=== PATIENT | female | born 1955 | race Caucasian/White ===

== ENCOUNTER → 2016-12-19 | Outpatient (CLI) | payer MEDICARE, MEDICAID ==
[~2016-12-19] MED LIST: ADVAIR 500/501 EA INH; ALBUTEROL0.09 MG/A2 IH; ALBUTEROL0.09 MG/A2 INH; AMOXIL500 MG PO; ASPIRIN81 M1 PO; ATARAX25 MG PO; AUGMENTIN 875 M1 TAB PO; AUGMENTIN 875875 MG PO; CIPRO250 MG PO; CLARITIN-D 10 M1 T21 PO; CLARITIN10 MG PO; CLINDAMYCIN HC300 MG PO; COREG PO; COREG12.5 M1 PO; COREG12.5 MG PO; COREG6.25 MG PO; COUMADIN1 MG PO; COUMADIN5 M2 PO; COZAAR25 MG PO; Coumadin7.5 MG PO; DELTASONE10 MG; DIGOXIN; DIGOXIN0.125 MG PO; DILTIAZEM60 MG PO; DOXYCYCLINE100 MG PO; DUEXIS 800-26.1 EACH PO; ELIQUIS5 M1 PO; FLEXERIL5 MG PO; FLONASE0.05 MG/AC NS; HYDROXYZINE HCL25 M1 PO; JANTOVEN1 MG PO; K-TAB20 MEQ PO; KEPPRA250 MG PO; LANOXIN0.25 MG PO; LASIX20 MG PO; LASIX40 MG PO; LEVAQUIN500 M2 PO; LIPITOR80 MG PO; LISINOPRIL5 MG PO; LOMOTIL 0.025 M1 TAB PO; LOTRISONE 0.05%1 CRE TP; LOVENOX100 MG/1 M PO; MENTHOL 5% T; METFORMIN500 MG PO; METOPROLOL25 MG PO; MUCINEX600 MG PO; NASAL SPRAY; OXYCODONE HYDROC5 MG PO; OXYCODONE5 M1 PO; PREDNISONE10 MG PO; PREDNISONE20 M1 PO; PREDNISONE20 MG PO; PRILOSEC20 MG PO; PROAIR HFA0.09 MG/AC IH; PROTONIX40 MG PO; PROVENTIL0.09 MG/AC IH; PROVENTIL0.09 MG/AC INH; QVAR40 MCG INH; ROBAXIN500 MG PO; SYMBICORT1 AE1 INH; TOPIRAMATE200 M2 PO; TRAMADOL HCL50 MG PO; VENTOLIN H0.09 MG/AC INH; VICODIN 5/500 505 MG PO; VISINE 30 ML15 ML OPH; VISTARIL25 MG PO; VOLTAREN50 M1 PO; WARFARIN SOD5 MG PO; ZITHROMAX Z PA250 MG PO; ZITHROMAX250 MG PO; ZITHROMAX500 MG PO; ZYRTEC10 MG PO; Zofran4 MG PO
[2016-12-19 16:18] LABS: ALBUMIN 3.5 gm/dl (3.1-4.5); ALKALINE PHOSPHATASE 166 U/L (45-117); BILIRUBIN, TOTAL 0.8 mg/dl (0.2-1.0); BUN 17 mg/dl (7-24); CARBON DIOXIDE 31 mmol/L (21-32); CHLORIDE 100 mmol/L (98-107); CHOLESTEROL 133 mg/dL (<200); EST GLOM FILT AFRICAN AMERICAN > 60 ml/min; GLUCOSE 200 mg/dL (65-99); HDL CHOLESTEROL 49 mg/dl (40-60); LDL CHOLESTEROL 43 mg/dL (9-159); POTASSIUM 4.3 mmol/L (3.5-5.1); SGOT/AST 134 IU/L (3-35); SGPT/ALT 86 U/L (12-78); SODIUM 141 mmol/L (136-145); TRIGLYCERIDES 207 mg/dl (<150); VLDL CHOLESTEROL 41 mg/dL (6-40)
[2016-12-19 16:36] LABS: BASO # 0.1 10*3/uL (0.0-0.1); BASO % 1.5 % (0.0-1.0); EOS # 0.1 10*3/uL (0.0-0.4); EOS % 1.5 % (1.0-4.0); HEMATOCRIT 42.1 % (37.0-47.0); HEMOGLOBIN 14.2 g/dl (12.0-16.0); LYMPH # 1.6 10*3/uL (1.3-4.4); LYMPH % 34.4 % (27.0-41.0); MEAN CELL VOLUME 99.3 fl (81.0-99.0); MEAN CORPUSCULAR HGB 33.5 pg (27.0-31.0); MEAN CORPUSCULAR HGB CONC 33.7 g/dl (33.0-37.0); MEAN PLATELET VOLUME 11.1 fl (9.6-12.3); MONO # 0.4 10*3/uL (0.1-1.0); MONO % 9.2 % (3.0-9.0); NEUT # 2.4 10*3/uL (2.3-7.9); NEUT % 53.2 % (47.0-73.0); PLATELET COUNT AUTOMATED 134 10*3/uL (130-400); RED BLOOD COUNT 4.24 10*6/uL (4.10-5.10); RED CELL DISTRI WIDTH 12.9 % (0-14.5); WHITE BLOOD COUNT 4.6 10*3/uL (4.8-10.8)
[2016-12-19 16:57] LABS: HEMOGLOBIN A1c 9.5 % (4.8-5.6)
== END | disposition home or self-care (01) ==
LOC: LAB 15:12
PROVIDERS: General Practice
DX: I10 Essential (primary) hypertension (principal); E11.9 Type 2 diabetes mellitus without complications; Z79.899 Other long term (current) drug therapy

== ENCOUNTER 2017-01-31 12:38 | Emergency (ER) | payer MEDICARE, MEDICAID ==
[~2017-01-31] VITALS: Ht 157.4 cm; Wt 77.6 kg
[2017-01-31 12:45] VITALS: BP 154/87
[2017-01-31] MEDS ORDERED: OMEPRAZOLE40 MG PO (12:46)
[2017-01-31] MEDS ORDERED: TAB-A-VITE1 TA1 PO (12:47)
[2017-01-31] MEDS ORDERED: HYDROXYZINE HCL25 MG PO (12:49)
[2017-01-31 12:59] LABS: BILIRUBIN NEGATIVE (NEGATIVE); BLOOD NEGATIVE (NEGATIVE); CLARITY CLEAR (CLEAR); COLOR YELLOW (YELLOW); GLUCOSE 3+ (NEGATIVE); KETONE NEGATIVE (NEGATIVE); LEUKO ESTERASE NEGATIVE (NEGATIVE); NITRITE NEGATIVE (NEGATIVE); PROTEIN NEGATIVE (NEGATIVE); UROBILINOGEN 0.2 E.U./dl (0.2-1.0)
[2017-01-31 13:38] LABS: URINE REFLEX COMMENT NO (NO)
[2017-01-31 13:55] LABS: BASO # 0.1 10*3/uL (0.0-0.1); BASO % 1.1 % (0.0-1.0); EOS # 0.1 10*3/uL (0.0-0.4); EOS % 1.5 % (1.0-4.0); HEMOGLOBIN 13.7 g/dl (12.0-16.0); LYMPH # 1.4 10*3/uL (1.3-4.4); LYMPH % 30.4 % (27.0-41.0); MEAN CELL VOLUME 97.6 fl (81.0-99.0); MEAN CORPUSCULAR HGB 33.4 pg (27.0-31.0); MEAN CORPUSCULAR HGB CONC 34.3 g/dl (33.0-37.0); MEAN PLATELET VOLUME 11.2 fl (9.6-12.3); MONO # 0.3 10*3/uL (0.1-1.0); MONO % 6.3 % (3.0-9.0); NEUT # 2.8 10*3/uL (2.3-7.9); NEUT % 60.3 % (47.0-73.0); PLATELET COUNT AUTOMATED 87 10*3/uL (130-400); RED CELL DISTRI WIDTH 12.7 % (0-14.5); WHITE BLOOD COUNT 4.6 10*3/uL (4.8-10.8)
[2017-01-31 14:11] LABS: ALBUMIN 3.3 gm/dl (3.1-4.5); ALKALINE PHOSPHATASE 167 U/L (45-117); BILIRUBIN, TOTAL 1.1 mg/dl (0.2-1.0); BUN 9 mg/dl (7-24); C-REACTIVE PROTEIN 1.06 MG/DL (0-0.3); CARBON DIOXIDE 29 mmol/L (21-32); CHLORIDE 104 mmol/L (98-107); EST GLOM FILT AFRICAN AMERICAN > 60 ml/min; GLUCOSE 367 mg/dL (65-99); MAGNESIUM 1.8 mg/dL (1.5-2.1); POTASSIUM 4.1 mmol/L (3.5-5.1); SGOT/AST 57 IU/L (3-35); SGPT/ALT 58 U/L (12-78); SODIUM 138 mmol/L (136-145); TOTAL PROTEIN 6.6 gm/dL (6.4-8.2)
[2017-01-31] MEDS ORDERED: BACTRIM DS 8001 TAB PO (14:37)
== END 2017-01-31 12:56 | disposition home or self-care (01) ==
LOC: ED 12:38
PROVIDERS: Emergency Medicine
DX: R30.0 Dysuria (principal); R30.9 Painful micturition, unspecified; E11.8 Type 2 diabetes mellitus with unspecified complications; I48.91 Unspecified atrial fibrillation; J44.9 Chronic obstructive pulmonary disease, unspecified; E11.9 Type 2 diabetes mellitus without complications; K21.9 Gastro-esophageal reflux disease without esophagitis; I10 Essential (primary) hypertension; I50.22 Chronic systolic (congestive) heart failure; I25.10 Atherosclerotic heart disease of native coronary artery without angina pectoris; Z79.899 Other long term (current) drug therapy; Z79.82 Long term (current) use of aspirin

== ENCOUNTER → 2017-04-06 | Outpatient (CLI) | payer MEDICARE, MEDICAID ==
[~2017-04-06] MED LIST changes: +BACTRIM DS 8001 TAB PO; +HYDROXYZINE HCL25 MG PO; +OMEPRAZOLE40 MG PO; +TAB-A-VITE1 TA1 PO
[2017-04-06 12:01] LABS: BASO % 0.9 % (0.0-1.0); EOS # 0.1 10*3/uL (0.0-0.4); EOS % 1.7 % (1.0-4.0); HEMATOCRIT 43.6 % (37.0-47.0); HEMOGLOBIN 15.1 g/dl (12.0-16.0); LYMPH # 1.3 10*3/uL (1.3-4.4); LYMPH % 27.5 % (27.0-41.0); MEAN CORPUSCULAR HGB 34.6 pg (27.0-31.0); MEAN CORPUSCULAR HGB CONC 34.6 g/dl (33.0-37.0); MEAN PLATELET VOLUME 11.6 fl (9.6-12.3); MONO # 0.3 10*3/uL (0.1-1.0); MONO % 6.7 % (3.0-9.0); NEUT # 2.9 10*3/uL (2.3-7.9); PLATELET COUNT AUTOMATED 117 10*3/uL (130-400); RED BLOOD COUNT 4.36 10*6/uL (4.10-5.10); WHITE BLOOD COUNT 4.7 10*3/uL (4.8-10.8)
[2017-04-06 12:05] LABS: HEMOGLOBIN A1c 10.4 % (4.8-5.6)
[2017-04-06 12:19] LABS: ALBUMIN 3.3 gm/dl (3.1-4.5); BILIRUBIN, TOTAL 1.1 mg/dl (0.2-1.0); POTASSIUM 4.1 mmol/L (3.5-5.1); TOTAL PROTEIN 7.3 gm/dL (6.4-8.2)
== END | disposition home or self-care (01) ==
LOC: LAB 11:21
PROVIDERS: General Practice
DX: E11.9 Type 2 diabetes mellitus without complications (principal); I10 Essential (primary) hypertension

== ENCOUNTER 2017-05-28 11:10 | Emergency (ER) | payer MEDICARE, MEDICAID ==
[~2017-05-28] VITALS: Ht 157.4 cm; Wt 73.9 kg
[2017-05-28 11:40] VITALS: BP 132/81
[2017-05-28 13:20] LABS: BASO % 0.6 % (0.0-1.0); EOS % 0.6 % (1.0-4.0); HEMATOCRIT 44.9 % (37.0-47.0); HEMOGLOBIN 15.4 g/dl (12.0-16.0); LYMPH # 0.8 10*3/uL (1.3-4.4); LYMPH % 23.6 % (27.0-41.0); MEAN CORPUSCULAR HGB 33.6 pg (27.0-31.0); MEAN CORPUSCULAR HGB CONC 34.3 g/dl (33.0-37.0); MEAN PLATELET VOLUME 10.7 fl (9.6-12.3); MONO # 0.4 10*3/uL (0.1-1.0); MONO % 12.3 % (3.0-9.0); NEUT # 2.2 10*3/uL (2.3-7.9); NEUT % 62.9 % (47.0-73.0); PLATELET COUNT AUTOMATED 104 10*3/uL (130-400); RED BLOOD COUNT 4.58 10*6/uL (4.10-5.10); RED CELL DISTRI WIDTH 13.2 % (0-14.5); WHITE BLOOD COUNT 3.5 10*3/uL (4.8-10.8)
[2017-05-28 13:34] LABS: ALBUMIN 3.1 gm/dl (3.1-4.5); ALKALINE PHOSPHATASE 143 U/L (45-117); BUN 9 mg/dl (7-24); CHLORIDE 104 mmol/L (98-107); CREATININE 0.93 mg/dL (0.55-1.02); LIPASE 107 U/L (73-393); SGOT/AST 135 IU/L (3-35); SGPT/ALT 89 U/L (12-78); SODIUM 134 mmol/L (136-145); TOTAL PROTEIN 6.8 gm/dL (6.4-8.2)
[2017-05-28 15:57] LABS: BILIRUBIN 1+ (NEGATIVE); BLOOD NEGATIVE (NEGATIVE); CLARITY CLEAR (CLEAR); COLOR YELLOW (YELLOW); GLUCOSE 3+ (NEGATIVE); KETONE TRACE (NEGATIVE); LEUKO ESTERASE NEGATIVE (NEGATIVE); NITRITE NEGATIVE (NEGATIVE); PH 5.5 (5.0-9.0); SPECIFIC GRAVITY 1.025 (1.005-1.030)
[2017-05-28 16:05] LABS: BACTERIA TRACE; MUCOUS 1+; RBC 0-2 rbc/hpf (0-2); WBC 0-2 wbc/hpf (0-5)
[2017-05-28] MEDS ORDERED: ZOFRAN ODT4 MG SL (16:22)
== END 2017-05-28 16:48 | disposition home or self-care (01) ==
LOC: ED 11:10
PROVIDERS: Nurse Practitioner Family
DX: A08.4 Viral intestinal infection, unspecified (principal); I48.91 Unspecified atrial fibrillation; I25.10 Atherosclerotic heart disease of native coronary artery without angina pectoris; E11.9 Type 2 diabetes mellitus without complications; K21.9 Gastro-esophageal reflux disease without esophagitis; I11.0 Hypertensive heart disease with heart failure; I50.9 Heart failure, unspecified; Z95.1 Presence of aortocoronary bypass graft; Z98.890 Other specified postprocedural states; Z79.82 Long term (current) use of aspirin; Z79.899 Other long term (current) drug therapy

== ENCOUNTER 2017-07-23 10:40 | Inpatient (IN) | payer MEDICARE, MEDICAID ==
[~2017-07-23] VITALS: Ht 157.5 cm; Wt 77.2 kg
[~2017-07-23 10:40] MED LIST changes: +ZOFRAN ODT4 MG SL
[2017-07-23 10:50] VITALS: BP 97/81
[2017-07-23 11:31] LABS: BASO % 0.5 % (0.0-1.0); EOS # 0.1 10*3/uL (0.0-0.4); EOS % 1.5 % (1.0-4.0); HEMATOCRIT 41.5 % (37.0-47.0); HEMOGLOBIN 14.4 g/dl (12.0-16.0); LYMPH # 1.1 10*3/uL (1.3-4.4); LYMPH % 17.8 % (27.0-41.0); MEAN CELL VOLUME 98.1 fl (81.0-99.0); MEAN CORPUSCULAR HGB CONC 34.7 g/dl (33.0-37.0); MEAN PLATELET VOLUME 10.9 fl (9.6-12.3); MONO # 0.4 10*3/uL (0.1-1.0); MONO % 6.3 % (3.0-9.0); NEUT # 4.3 10*3/uL (2.3-7.9); NEUT % 73.7 % (47.0-73.0); PLATELET COUNT AUTOMATED 120 10*3/uL (130-400); RED BLOOD COUNT 4.23 10*6/uL (4.10-5.10); WHITE BLOOD COUNT 5.9 10*3/uL (4.8-10.8)
--- NOTE | 2017-07-23 11:39 | NUR ---
PATIENT RATES PAIN A 10/10. STATES SYMPTOMS STARTED YESTERDAY MORNING.
[2017-07-23 11:41] LABS: ACT PARTIAL THROMBO TIME 23.8 SECONDS (20.8-31.5)
[2017-07-23 11:46] LABS: ALBUMIN 3.3 gm/dl (3.1-4.5); ALKALINE PHOSPHATASE 134 U/L (45-117); BUN 10 mg/dl (7-24); CHLORIDE 106 mmol/L (98-107); CREATININE 0.75 mg/dL (0.55-1.02); LIPASE 120 U/L (73-393); POTASSIUM 4.1 mmol/L (3.5-5.1); SGOT/AST 55 IU/L (3-35); SGPT/ALT 37 U/L (12-78); SODIUM 140 mmol/L (136-145); TOTAL PROTEIN 7.2 gm/dL (6.4-8.2)
[2017-07-23 11:47] LABS: TROPONIN I < 0.015 ng/ml (<0.045)
--- NOTE | 2017-07-23 12:47 | NUR ---
THE TYLENOL HAS HELPED WITH THE PATENTS PAIN
[2017-07-23 13:12] LABS: BILIRUBIN NEGATIVE (NEGATIVE); BLOOD TRACE-INTACT (NEGATIVE); CLARITY CLOUDY (CLEAR); COLOR YELLOW (YELLOW); GLUCOSE 3+ (NEGATIVE); KETONE NEGATIVE (NEGATIVE); LEUKO ESTERASE 1+ (NEGATIVE); NITRITE NEGATIVE (NEGATIVE)
[2017-07-23 13:27] LABS: MUCOUS 1+; WBC TNTC wbc/hpf (0-5)
[2017-07-23 13:28] LABS: BACTERIA TRACE
[2017-07-23 15:42] VITALS: BP 151/86
--- NOTE | 2017-07-23 16:46 | NUR ---
REPORT GIVEN TO RONAN RN AT THIS TIME.
[2017-07-23 16:47] VITALS: BP 151/86
[2017-07-23 17:15] VITALS: BP 98/60
--- NOTE | 2017-07-23 17:15 | NUR ---
A 61, admitted to , under the services of BALTAZAR Arevalo DO with a diagnosis of UTI,SEPSIS,PNEUMONITIS. Chief complaint is SHORTNESS OF BREATH,CONGESTION, COUGH. Patient arrived via bed from ER. Monitor applied. Initial assessment completed. Vital signs taken and recorded. BALTAZAR AREVALO DO notified of admission to the unit. Orders received. See assessment for past medical history, medications and allergies. Patient and/or family oriented to unit. [facility]. Clothing/patient valuable form completed. JONATHON BOATENG R
--- NOTE | 2017-07-23 17:20 | NUR ---
PATIENT TAKEN TO 5TH FLOOR. HARSHA BRAR AT BEDSIDE WITH PATIENT AT THIS TIME.
--- NOTE | 2017-07-23 18:10 | NUR ---
MEDICATIONS VERIFIED FROM PT LIST OF HOME MEDICATIONS.
--- NOTE | 2017-07-23 19:13 | NUR ---
DR. Divya COTA MADE AWARE OF MEDS UPDATED.
[2017-07-23 20:00] VITALS: BP 136/70
--- NOTE | 2017-07-23 22:00 | NUR ---
DROWSY. RESPIRATIONS EASY. EYES MATTED, PROVIDED WITH WARM WASH CLOTH. LUNGS DIMINISHED, CLEAR. PULSE OX 98% RA. CLAIMS COUGH PROD FOR GREEN/BROWN. ABD SOFT WITH HYPERACTIVE BOWEL SOUNDS, C/O DIARRHEA. +2 BLE EDEMA - OFFERED AND EDUCATED REGARDING TEDS, DECLINED. IV FLUIDS INFUSING. CALL LIGHT WITHIN REACH
[2017-07-24] VITALS: BP 105/79
[2017-07-24 04:00] VITALS: BP 108/82
--- NOTE | 2017-07-24 06:00 | NUR ---
REQUESTED AND RECEIVED TYLENOL PER PRN ORDER FOR HEADACHE.
[2017-07-24 06:35] LABS: BASO % 0.3 % (0.0-1.0); EOS % 0.3 % (1.0-4.0); HEMATOCRIT 39.3 % (37.0-47.0); HEMOGLOBIN 13.4 g/dl (12.0-16.0); LYMPH # 0.4 10*3/uL (1.3-4.4); LYMPH % 12.2 % (27.0-41.0); MEAN CELL VOLUME 98.3 fl (81.0-99.0); MEAN CORPUSCULAR HGB 33.5 pg (27.0-31.0); MEAN CORPUSCULAR HGB CONC 34.1 g/dl (33.0-37.0); MEAN PLATELET VOLUME 11.2 fl (9.6-12.3); MONO # 0.1 10*3/uL (0.1-1.0); MONO % 1.5 % (3.0-9.0); NEUT # 2.9 10*3/uL (2.3-7.9); NEUT % 85.4 % (47.0-73.0); PLATELET COUNT AUTOMATED 109 10*3/uL (130-400); WHITE BLOOD COUNT 3.4 10*3/uL (4.8-10.8)
[2017-07-24 07:04] LABS: BUN 10 mg/dl (7-24); CHLORIDE 109 mmol/L (98-107); CHOLESTEROL 119 mg/dL (<200); CREATININE 0.78 mg/dL (0.55-1.02); HDL CHOLESTEROL 47 mg/dl (40-60); LDL CHOLESTEROL 61 mg/dL (9-159); POTASSIUM 4.3 mmol/L (3.5-5.1); SODIUM 140 mmol/L (136-145); TRIGLYCERIDES 57 mg/dl (<150); VLDL CHOLESTEROL 11 mg/dL (6-40)
[2017-07-24 07:05] LABS: INTERNATIONAL NORM RATIO 1.1 (2.0-3.5)
[2017-07-24 07:12] LABS: THYROID STIM HORMONE (HS) 0.885 uIU/ml (0.358-4.75)
[2017-07-24 08:00] VITALS: BP 114/58
--- NOTE | 2017-07-24 09:00 | NUR ---
Track Broom Operator in to talk to patient. Patient states lives at home with boyfriend. There are few steps in the home. Physician: jennifer josé Pharmacy: [facility] health services: none Patient's level of ADLs: INDEPENDENT Patient has working utilities: all working DME: nebulizer Follow-up physician's appointment after d/c: will be made by hospitalist nurse director upon discharge Does patient want to access PORTAL?: no Discharge plan discussed with patient, patient lives at home with boyfriend, she states she is independent in adls and ambulation, drives, works title department manager, patient states she will be going back home and denies any home needs. GABBY HESS
[2017-07-24 12:00] VITALS: BP 115/66
[2017-07-24 16:00] VITALS: BP 100/73
--- NOTE | 2017-07-24 18:14 | NUR ---
ADMINISTERED IV ZOFRAN PER PT REQUEST FOR NAUSEA. WILL MONITOR FOR EFFECTIVENESS.
--- NOTE | 2017-07-24 19:00 | NUR ---
PT RESTING COMFORTABLY. NO FURTHER COMPLAINTS OF NAUSEA AT THIS TIME
[2017-07-24 20:00] VITALS: BP 109/65
--- NOTE | 2017-07-24 21:00 | NUR ---
RESTING IN BED BED WATCHING TV. RESPIRATIONS EASY. LUNGS DIMINISHED, CLEAR. PULSE OX 96% RA. CLAIMS COUGH PRODUCTIVE FOR BROWN. +1 BLE EDEMA, CONTINUES TO DECLINE TEDS. IV FLUIDS INFUSING PER ORDER. CALL LIGHT WITHIN REACH. NO VOICED COMPLAINTS
[2017-07-25] VITALS: BP 105/54
--- NOTE | 2017-07-25 | NUR ---
SLEEPING. NO DISTRESS NOTED. RESPIRATIONS EASY. VSS. IV FLUIDS MAINTAINED PER ORDER.
--- NOTE | 2017-07-25 03:00 | NUR ---
CONTINUES TO SLEEP WITH NO DISTRESS NOTED. IV FLUIDS MAINTAINED. CALL LIGHT WITHIN REACH
--- NOTE | 2017-07-25 06:00 | NUR ---
SLEPT THROUGHOUT NIGHT WITH NO DISTRESS NOTED. RESPIRATIONS EASY. IV FLUIDS MAINTAINED. CALL LIGHT WITHIN REACH
[2017-07-25 06:33] LABS: BASO % 0.1 % (0.0-1.0); HEMATOCRIT 37.7 % (37.0-47.0); HEMOGLOBIN 12.8 g/dl (12.0-16.0); LYMPH # 0.6 10*3/uL (1.3-4.4); LYMPH % 8.2 % (27.0-41.0); MEAN CELL VOLUME 100.3 fl (81.0-99.0); MEAN PLATELET VOLUME 11.1 fl (9.6-12.3); MONO # 0.1 10*3/uL (0.1-1.0); MONO % 1.9 % (3.0-9.0); NEUT # 6.2 10*3/uL (2.3-7.9); NEUT % 89.1 % (47.0-73.0); PLATELET COUNT AUTOMATED 106 10*3/uL (130-400); RED BLOOD COUNT 3.76 10*6/uL (4.10-5.10); RED CELL DISTRI WIDTH 12.9 % (0-14.5); WHITE BLOOD COUNT 6.9 10*3/uL (4.8-10.8)
[2017-07-25 06:59] LABS: BUN 14 mg/dl (7-24); CHLORIDE 111 mmol/L (98-107); CREATININE 0.81 mg/dL (0.55-1.02); POTASSIUM 4.2 mmol/L (3.5-5.1); SODIUM 144 mmol/L (136-145)
[2017-07-25 08:00] VITALS: BP 126/69
--- NOTE | 2017-07-25 09:00 | NUR ---
case management visits with patient, patient denies any home needs
--- NOTE | 2017-07-25 09:02 | NUR ---
RESTING COMFORTABLY, DENIES C/O AT PRESENT TIME. EASY RESPIRATIONS WITH SKIN W/D. SEE SHIFT ASSESSMENT.
[2017-07-25 12:00] VITALS: BP 103/78
[2017-07-25] MEDS ORDERED: Vitamin D PO (15:21)
--- NOTE | 2017-07-25 16:22 | NUR ---
Discharge instructions reviewed with patient/family. Patient receptive and verbalizes understanding. Follow-up care arranged. Written instructions given to patient/family. EDER DILLON
== END 2017-07-25 16:22 | disposition home or self-care (01) | DRG 872 ==
LOC: ED 10:40 → 5E 13:48 → EDHOLD 13:48 → 5E 15:19
PROVIDERS: Emergency Medicine; Internal Medicine; Student in an Organized Health Care Education/Training Program; ADMIT Internal Medicine
DX: A41.9 Sepsis, unspecified organism (principal); D69.6 Thrombocytopenia, unspecified; D68.59 Other primary thrombophilia; I11.0 Hypertensive heart disease with heart failure; I50.22 Chronic systolic (congestive) heart failure; E11.65 Type 2 diabetes mellitus with hyperglycemia; I48.92 Unspecified atrial flutter; N39.0 Urinary tract infection, site not specified; I48.2 Chronic atrial fibrillation; J06.9 Acute upper respiratory infection, unspecified; J32.9 Chronic sinusitis, unspecified; I25.10 Atherosclerotic heart disease of native coronary artery without angina pectoris; D72.810 Lymphocytopenia; K21.9 Gastro-esophageal reflux disease without esophagitis; R74.0 Nonspecific elevation of levels of transaminase and lactic acid dehydrogenase [LDH]; E55.9 Vitamin D deficiency, unspecified; J44.9 Chronic obstructive pulmonary disease, unspecified; Z79.01 Long term (current) use of anticoagulants; Z79.82 Long term (current) use of aspirin; Z79.84 Long term (current) use of oral hypoglycemic drugs; Z79.51 Long term (current) use of inhaled steroids; Z79.899 Other long term (current) drug therapy; Z95.1 Presence of aortocoronary bypass graft; Z98.891 History of uterine scar from previous surgery; Z95.2 Presence of prosthetic heart valve; Z82.49 Family history of ischemic heart disease and other diseases of the circulatory system; Z83.3 Family history of diabetes mellitus; Z84.1 Family history of disorders of kidney and ureter

== ENCOUNTER 2017-10-02 12:57 | Inpatient (IN) | payer MEDICARE, MEDICAID ==
[~2017-10-02] VITALS: Ht 157.4 cm; Wt 77.2 kg
--- NOTE | ~2017-10-02 | ST ---
[place], [place] EXERCISE STRESS TEST REPORT [id number] UN[facility] #: [id number] ROOM: 403 DOCTOR: BRADY MURRIETA MD BIRTHDATE: [birth year] DOS: 10/04/2017 LEXISCAN STRESS EKG. REFERRING PHYSICIAN: Dr. Henri Bland. INDICATION: Central chest pain. The patient underwent standard protocol Lexiscan stress EKG. The patient's baseline EKG shows atrial fibrillation with a heart rate of [address]-T wave changes. Blood pressure is 118/68. The patient's peak heart was 118 with a blood pressure of 92/62. The patient had no chest pain. The patient ischemic change on EKG. No arrhythmias were noted aside from baseline atrial fibrillation. SUMMARY OF FINDINGS: Unremarkable Lexiscan stress EKG. Please see separate report for perfusion scan results. BRADY MURRIETA MD CM:STRESS:EXERCISE STRESS TEST REPORT [id number] BRADY MURRIETA MD
[~2017-10-02 12:57] MED LIST changes: +FLONASE ALLERG9.9 ML NAS; -LANOXIN0.25 MG PO; +LANOXIN250 MCG PO; +TAB-A-VITE1 EACH PO; -TAB-A-VITE1 TA1 PO; +Vitamin D PO
[2017-10-02 13:10] VITALS: BP 103/71
[2017-10-02 13:38] LABS: BASO % 0.9 % (0.0-1.0); EOS # 0.1 10*3/uL (0.0-0.4); EOS % 2.1 % (1.0-4.0); HEMATOCRIT 42.9 % (37.0-47.0); HEMOGLOBIN 14.9 g/dl (12.0-16.0); LYMPH # 0.9 10*3/uL (1.3-4.4); LYMPH % 26.2 % (27.0-41.0); MEAN CELL VOLUME 95.8 fl (81.0-99.0); MEAN CORPUSCULAR HGB 33.3 pg (27.0-31.0); MEAN CORPUSCULAR HGB CONC 34.7 g/dl (33.0-37.0); MEAN PLATELET VOLUME 11.2 fl (9.6-12.3); MONO # 0.4 10*3/uL (0.1-1.0); MONO % 11.8 % (3.0-9.0); NEUT % 58.7 % (47.0-73.0); PLATELET COUNT AUTOMATED 99 10*3/uL (130-400); RED BLOOD COUNT 4.48 10*6/uL (4.10-5.10); RED CELL DISTRI WIDTH 12.9 % (0-14.5); WHITE BLOOD COUNT 3.4 10*3/uL (4.8-10.8)
[2017-10-02 13:40] VITALS: BP 105/68
[2017-10-02 13:48] LABS: ACT PARTIAL THROMBO TIME 25.9 SECONDS (20.8-31.5); INTERNATIONAL NORM RATIO 1.2 (2.0-3.5)
[2017-10-02 13:55] LABS: ALBUMIN 3.1 gm/dl (3.1-4.5); ALKALINE PHOSPHATASE 140 U/L (45-117); BUN 11 mg/dl (7-24); CHLORIDE 105 mmol/L (98-107); CREATININE 0.98 mg/dL (0.55-1.02); POTASSIUM 4.1 mmol/L (3.5-5.1); SGOT/AST 63 IU/L (3-35); SGPT/ALT 37 U/L (12-78); SODIUM 137 mmol/L (136-145)
[2017-10-02 13:56] LABS: TROPONIN I < 0.015 ng/ml (<0.045)
[2017-10-02 14:24] VITALS: BP 105/57
[2017-10-02 14:52] VITALS: BP 101/56
[2017-10-02 16:00] VITALS: BP 126/61
[2017-10-02] MEDS ORDERED: DOXYCYCLINE100 M3 PO (16:07)
[2017-10-02] MEDS ORDERED: VITAMIN D-32000 UNIT PO (16:51)
[2017-10-02] MEDS ORDERED: GLIPIZIDE5 MG PO (16:52)
[2017-10-02 20:00] VITALS: BP 114/53
[2017-10-02 20:17] LABS: TROPONIN I < 0.015 ng/ml (<0.045)
[2017-10-02 20:26] LABS: DIGOXIN 0.09 ng/ml (0.8-2.0)
[2017-10-03] VITALS: BP 119/57
[2017-10-03 04:15] VITALS: BP 119/73
[2017-10-03 06:19] LABS: BASO % 1.2 % (0.0-1.0); EOS # 0.1 10*3/uL (0.0-0.4); HEMATOCRIT 40.6 % (37.0-47.0); HEMOGLOBIN 14.2 g/dl (12.0-16.0); LYMPH # 0.8 10*3/uL (1.3-4.4); LYMPH % 24.1 % (27.0-41.0); MEAN CELL VOLUME 96.9 fl (81.0-99.0); MEAN CORPUSCULAR HGB 33.9 pg (27.0-31.0); MEAN PLATELET VOLUME 11.5 fl (9.6-12.3); MONO # 0.4 10*3/uL (0.1-1.0); MONO % 11.6 % (3.0-9.0); NEUT % 59.8 % (47.0-73.0); PLATELET COUNT AUTOMATED 94 10*3/uL (130-400); RED BLOOD COUNT 4.19 10*6/uL (4.10-5.10); WHITE BLOOD COUNT 3.4 10*3/uL (4.8-10.8)
[2017-10-03 06:50] LABS: ALBUMIN 2.9 gm/dl (3.1-4.5); ALKALINE PHOSPHATASE 130 U/L (45-117); BUN 14 mg/dl (7-24); CHLORIDE 106 mmol/L (98-107); CREATININE 0.82 mg/dL (0.55-1.02); PHOSPHOROUS 3.9 mg/dL (2.5-4.9); POTASSIUM 3.9 mmol/L (3.5-5.1); SGOT/AST 54 IU/L (3-35); SGPT/ALT 34 U/L (12-78); SODIUM 139 mmol/L (136-145); TOTAL PROTEIN 6.6 gm/dL (6.4-8.2)
[2017-10-03 08:00] VITALS: BP 100/70
[2017-10-03 10:13] LABS: VITAMIN D, 25-HYDROXY 14.6 ng/mL (30-100)
[2017-10-03 12:00] VITALS: BP 114/64
[2017-10-03 16:00] VITALS: BP 124/72
[2017-10-03 20:00] VITALS: BP 115/69
[2017-10-04] VITALS: BP 118/63
[2017-10-04 08:00] VITALS: BP 114/64
[2017-10-04 12:00] VITALS: BP 135/64
[2017-10-04 16:00] VITALS: BP 110/53
[2017-10-04 20:00] VITALS: BP 124/66
[2017-10-05] VITALS: BP 104/62; BP 84/35
[2017-10-05 08:00] VITALS: BP 100/56
[2017-10-05] MEDS ORDERED: AUGMENTIN 875875 MG PO (10:51)
== END 2017-10-05 11:45 | disposition home or self-care (01) | DRG 313 ==
LOC: ED 12:57 → EDHOLD 15:15 → 4E 15:15
PROVIDERS: Emergency Medicine; Student in an Organized Health Care Education/Training Program
PROC: 4A02XM4 Measurement of Cardiac Total Activity, External Approach (ICD-10-PCS; principal; 2017-10-04)
PROC: 3E073KZ Introduction of Other Diagnostic Substance into Coronary Artery, Percutaneous Approach (ICD-10-PCS; principal; 2017-10-04)
DX: R07.9 Chest pain, unspecified (principal); I25.10 Atherosclerotic heart disease of native coronary artery without angina pectoris; D68.59 Other primary thrombophilia; I27.20 Pulmonary hypertension, unspecified; E11.65 Type 2 diabetes mellitus with hyperglycemia; E44.1 Mild protein-calorie malnutrition; I50.32 Chronic diastolic (congestive) heart failure; D72.818 Other decreased white blood cell count; J01.40 Acute pansinusitis, unspecified; E55.9 Vitamin D deficiency, unspecified; I05.0 Rheumatic mitral stenosis; E78.00 Pure hypercholesterolemia, unspecified; E66.9 Obesity, unspecified; R74.0 Nonspecific elevation of levels of transaminase and lactic acid dehydrogenase [LDH]; F17.200 Nicotine dependence, unspecified, uncomplicated; J44.9 Chronic obstructive pulmonary disease, unspecified; K21.9 Gastro-esophageal reflux disease without esophagitis; I48.2 Chronic atrial fibrillation; Z95.1 Presence of aortocoronary bypass graft; Z98.891 History of uterine scar from previous surgery; Z72.89 Other problems related to lifestyle; Z83.3 Family history of diabetes mellitus; Z84.1 Family history of disorders of kidney and ureter; Z82.49 Family history of ischemic heart disease and other diseases of the circulatory system; Z79.82 Long term (current) use of aspirin; Z79.899 Other long term (current) drug therapy; Z79.84 Long term (current) use of oral hypoglycemic drugs; Z68.30 Body mass index [BMI] 30.0-30.9, adult

== ENCOUNTER → 2018-02-26 | Outpatient (CLI) | payer MEDICARE, MEDICAID ==
[~2018-02-26] MED LIST changes: +DOXYCYCLINE100 M3 PO; +GLIPIZIDE5 MG PO; +VITAMIN D-32000 UNIT PO
== END | disposition home or self-care (01) ==
LOC: MAMMO 15:45
DX: Z12.31 Encounter for screening mammogram for malignant neoplasm of breast (principal)

== ENCOUNTER 2018-11-04 13:45 | Emergency (ER) | payer OTHER, MEDICAID ==
[~2018-11-04] VITALS: Ht 157.4 cm; Wt 78.5 kg
[2018-11-04 13:47] VITALS: BP 115/43
[2018-11-04] MEDS ORDERED: AUGMENTIN 875875 MG PO (16:20)
[2019-01-17] MEDS ORDERED: IBU800 MG PO (12:12)
[2019-01-17] MEDS ORDERED: PENICILLIN VK500 MG PO (12:12)
== END 2018-11-04 16:35 | disposition home or self-care (01) ==
LOC: ED 13:45
DX: J32.9 Chronic sinusitis, unspecified (principal); K08.89 Other specified disorders of teeth and supporting structures; Z79.2 Long term (current) use of antibiotics; Z79.82 Long term (current) use of aspirin; Z79.899 Other long term (current) drug therapy; Z79.84 Long term (current) use of oral hypoglycemic drugs

== ENCOUNTER 2019-02-27 11:09 | Emergency (ER) | payer OTHER, MEDICAID ==
[~2019-02-27] VITALS: Ht 157.4 cm; Wt 78.0 kg
--- NOTE | ~2019-02-27 | EKG ---
[place], [place] ELECTROCARDIOGRAM REPORT NAME: JENN MURILLO UNIT #: [id number] ROOM: DOCTOR: EPIPHANY DRAFT REPORT BIRTHDATE: [birth year] [facility] Test Date: 2019-02-27 Test Time: 12:07:03 Pat Name: JENN MURILLO Department: ER Room: Gender: F Knobber: : 1955 Requested By: WINTER JENNINGS DNP Order Number: [id number] Reading MD: Preeti Swan MD Measurements Intervals [place] Rate: 63 P: 0 SD: 341 QRS: 69 QRSD: 112 T: 77 QT: 532 QTc: 545 Interpretive Statements Atrial tachycardia at 159 bpmwith variable AV conduction Borderline intraventricular conduction delay Low voltage, precordial leads Borderline ST depression, diffuse leads Prolonged QT interval Electronically Signed On 03-05-2019 6:54:40 PDT by Preeti Swan MD CM:EKGRPT:ELECTROCARDIOGRAM REPORT [id number] WINTER LITTLEJOHN DRAFT REPORT WINTER JENNINGS DNP
[2019-02-27 11:09] VITALS: BP 108/53
[~2019-02-27 11:09] MED LIST changes: +IBU800 MG PO; +PENICILLIN VK500 MG PO
[2019-02-27 11:57] LABS: BASO % 0.6 % (0.0-1.0); EOS # 0.1 10*3/uL (0.0-0.4); EOS % 2.9 % (1.0-4.0); HEMATOCRIT 39.2 % (37.0-47.0); HEMOGLOBIN 13.5 g/dl (12.0-16.0); LYMPH # 0.8 10*3/uL (1.3-4.4); LYMPH % 26.4 % (27.0-41.0); MEAN CELL VOLUME 103.2 fl (81.0-99.0); MEAN CORPUSCULAR HGB 35.5 pg (27.0-31.0); MEAN CORPUSCULAR HGB CONC 34.4 g/dl (33.0-37.0); MEAN PLATELET VOLUME 11.4 fl (9.6-12.3); MONO # 0.2 10*3/uL (0.1-1.0); MONO % 5.7 % (3.0-9.0); NEUT % 64.4 % (47.0-73.0); PLATELET COUNT AUTOMATED 72 10*3/uL (130-400); RED CELL DISTRI WIDTH 13.3 % (0-14.5); WHITE BLOOD COUNT 3.1 10*3/uL (4.8-10.8)
[2019-02-27 12:08] LABS: ACT PARTIAL THROMBO TIME 25.4 SECONDS (20.0-32.1)
[2019-02-27 12:13] LABS: ALKALINE PHOSPHATASE 147 U/L (45-117); BUN 15 mg/dl (7-24); CHLORIDE 107 mmol/L (98-107); CREATININE 0.99 mg/dL (0.55-1.02); LIPASE 96 U/L (73-393); POTASSIUM 4.6 mmol/L (3.5-5.1); SGOT/AST 35 IU/L (3-35); SGPT/ALT 38 U/L (12-78); SODIUM 138 mmol/L (136-145); TOTAL PROTEIN 6.3 gm/dL (6.4-8.2)
[2019-02-27 12:14] LABS: TROPONIN I < 0.015 ng/ml (<0.045)
[2019-02-27 12:52] LABS: BILIRUBIN 1+ (NEGATIVE); BLOOD NEGATIVE (NEGATIVE); CLARITY CLOUDY (CLEAR); COLOR YELLOW (YELLOW); GLUCOSE 1+ (NEGATIVE); KETONE NEGATIVE (NEGATIVE); LEUKO ESTERASE TRACE (NEGATIVE); NITRITE NEGATIVE (NEGATIVE); SPECIFIC GRAVITY 1.025 (1.005-1.030)
[2019-02-27 13:25] LABS: BACTERIA 3+; MUCOUS 2+
[2019-02-27] MEDS ORDERED: CEPHALEXIN500 M1 PO (16:11)
[2019-04-21] MEDS ORDERED: MEDROL DOSEPAK4 MG PO (19:54)
== END 2019-02-27 16:12 | disposition home or self-care (01) ==
LOC: ED 11:09
PROVIDERS: Nurse Practitioner Family
DX: N39.0 Urinary tract infection, site not specified (principal); R10.9 Unspecified abdominal pain; I11.0 Hypertensive heart disease with heart failure; I50.9 Heart failure, unspecified; I48.91 Unspecified atrial fibrillation; Z79.2 Long term (current) use of antibiotics; Z79.899 Other long term (current) drug therapy; Z79.82 Long term (current) use of aspirin

== ENCOUNTER 2019-04-17 13:44 | Emergency (ER) | payer OTHER, MEDICAID ==
[~2019-04-17] VITALS: Ht 157.4 cm; Wt 78.0 kg
[~2019-04-17 13:44] MED LIST changes: +CEPHALEXIN500 M1 PO
[2019-04-17 13:47] VITALS: BP 130/69
[2019-04-17] MEDS ORDERED: AMOXICILLIN500 M2 PO (14:02)
[2019-04-17] MEDS ORDERED: IBUPROFEN600 MG PO (14:02)
[2019-04-21] MEDS ORDERED: MEDROL DOSEPAK4 MG PO (19:54)
== END 2019-04-17 14:16 | disposition home or self-care (01) ==
LOC: ED 13:44
DX: K05.10 Chronic gingivitis, plaque induced (principal); K08.89 Other specified disorders of teeth and supporting structures; Z98.890 Other specified postprocedural states; Z95.1 Presence of aortocoronary bypass graft; Z79.899 Other long term (current) drug therapy; Z79.82 Long term (current) use of aspirin

== ENCOUNTER → 2019-04-28 | Outpatient (CLI) | payer OTHER, MEDICAID ==
[~2019-04-28] MED LIST changes: +AMOXICILLIN500 M2 PO; +IBUPROFEN600 MG PO; +MEDROL DOSEPAK4 MG PO
== END | disposition home or self-care (01) ==
LOC: US 12:00
DX: M79.662 Pain in left lower leg (principal)

== ENCOUNTER 2019-05-01 13:55 | Emergency (ER) | payer OTHER, MEDICAID ==
[~2019-05-01] VITALS: Ht 157.4 cm; Wt 82.1 kg
[2019-05-01 13:58] VITALS: BP 150/85
[2019-05-01 14:26] LABS: BASO % 0.6 % (0.0-1.0); EOS # 0.1 10*3/uL (0.0-0.4); EOS % 1.4 % (1.0-4.0); HEMATOCRIT 43.5 % (37.0-47.0); HEMOGLOBIN 15.3 g/dl (12.0-16.0); LYMPH # 1.5 10*3/uL (1.3-4.4); LYMPH % 29.5 % (27.0-41.0); MEAN CELL VOLUME 100.2 fl (81.0-99.0); MEAN CORPUSCULAR HGB 35.3 pg (27.0-31.0); MEAN CORPUSCULAR HGB CONC 35.2 g/dl (33.0-37.0); MEAN PLATELET VOLUME 11.1 fl (9.6-12.3); MONO # 0.3 10*3/uL (0.1-1.0); MONO % 6.5 % (3.0-9.0); NEUT # 3.1 10*3/uL (2.3-7.9); NEUT % 61.8 % (47.0-73.0); PLATELET COUNT AUTOMATED 93 10*3/uL (130-400); RED BLOOD COUNT 4.34 10*6/uL (4.10-5.10); RED CELL DISTRI WIDTH 12.7 % (0-14.5); WHITE BLOOD COUNT 5.1 10*3/uL (4.8-10.8)
[2019-05-01 14:38] LABS: ACT PARTIAL THROMBO TIME 24.3 SECONDS (20.0-32.1)
[2019-05-01 14:40] LABS: ALBUMIN 3.3 gm/dl (3.1-4.5); ALKALINE PHOSPHATASE 171 U/L (45-117); BUN 13 mg/dl (7-24); CHLORIDE 106 mmol/L (98-107); CREATININE 0.81 mg/dL (0.55-1.02); POTASSIUM 4.4 mmol/L (3.5-5.1); SGOT/AST 53 IU/L (3-35); SGPT/ALT 66 U/L (12-78); SODIUM 137 mmol/L (136-145); TOTAL PROTEIN 6.8 gm/dL (6.4-8.2)
[2019-05-01 14:53] LABS: TROPONIN I < 0.015 ng/ml (<0.045)
== END 2019-05-01 14:56 | disposition home or self-care (01) ==
LOC: ED 13:55
PROVIDERS: Physician Assistant
DX: I82.402 Acute embolism and thrombosis of unspecified deep veins of left lower extremity (principal); R73.9 Hyperglycemia, unspecified; Z79.899 Other long term (current) drug therapy; Z79.82 Long term (current) use of aspirin

== ENCOUNTER → 2019-05-01 | Outpatient (CLI) | payer OTHER, MEDICAID | END | disposition home or self-care (01) | LOC: US 11:49 | DX: I82.412 Acute embolism and thrombosis of left femoral vein (principal) ==

== ENCOUNTER 2019-05-19 13:16 | Inpatient (IN) | payer OTHER, MEDICAID ==
[~2019-05-19] VITALS: Ht 157.5 cm; Wt 82.4 kg
[~2019-05-19 13:16] MED LIST changes: -MAPAP ARTHRITI650 MG PO; -NORCO 5-325 TA1 EACH PO; -SYMB160 INH; -TRULICITY1.5 MG/0.5 SC
[2019-05-19 13:19] VITALS: BP 127/48
[2019-05-19 15:27] VITALS: BP 145/94
--- NOTE | 2019-05-19 15:27 | NUR ---
Time: 1526 A 63 year old female admitted to 4E under services of OSMEL PETERS DO. Pt. arrived via stretcher from ER. Chief complaint: elevated inr. JORDAN MARCANO
[2019-05-19 16:00] VITALS: BP 145/94
[2019-05-19] MEDS ORDERED: TRULICITY1.5 MG/0.5 SC (16:02)
[2019-05-19] MEDS ORDERED: MAPAP ARTHRITI650 MG PO ×2 (16:09→16:14)
[2019-05-19] MEDS ORDERED: SYMB160 INH (16:13)
[2019-05-19 20:00] VITALS: BP 126/59
--- NOTE | 2019-05-19 20:05 | NUR ---
0 RESTING IN BED WITH HOB ELEVATED. CALL LIGHT IN REACH. ALERT AND PLEASANT. HEP LOCK INTACT. NO DISTRESS NOTED. C/O SORENESS LEFT FOOT. GOOD PEDAL PULSES NOTED.
--- NOTE | 2019-05-19 22:04 | NUR ---
RESTING IN BED WATCHING TV. REMAINS WITHOUT DISTRESS.
--- NOTE | 2019-05-19 23:51 | NUR ---
MEDICATED WITH NORCO PO FOR C/O'S PAIN LEFT FOOT. WILL MONITOR.
[2019-05-20] VITALS: BP 117/52
--- NOTE | 2019-05-20 00:33 | NUR ---
EARLIER PAIN MED EFFECTIVE. RESTING IN BED WITH EYES CLOSED. APPEARS TO BE SLEEPING.
--- NOTE | 2019-05-20 03:29 | NUR ---
LATE ENTRY REFUSED SCD'S EARLIER DUE TO BILATERAL FOOT PAIN.
--- NOTE | 2019-05-20 04:02 | NUR ---
REMAINS SLEEPING WITHOUT DISTRESS.
--- NOTE | 2019-05-20 06:05 | NUR ---
SLEPT WELL THIS SHIFT. NO FURTHER C/O'S PAIN VOICED.
[2019-05-20 07:28] LABS: EOS # 0.1 10*3/uL (0.0-0.4); EOS % 3.8 % (1.0-4.0); HEMATOCRIT 37.9 % (37.0-47.0); HEMOGLOBIN 12.9 g/dl (12.0-16.0); LYMPH # 1.4 10*3/uL (1.3-4.4); LYMPH % 43.9 % (27.0-41.0); MEAN CELL VOLUME 101.9 fl (81.0-99.0); MEAN CORPUSCULAR HGB 34.7 pg (27.0-31.0); MEAN PLATELET VOLUME 11.2 fl (9.6-12.3); MONO # 0.3 10*3/uL (0.1-1.0); MONO % 9.3 % (3.0-9.0); NEUT # 1.3 10*3/uL (2.3-7.9); PLATELET COUNT AUTOMATED 92 10*3/uL (130-400); RED BLOOD COUNT 3.72 10*6/uL (4.10-5.10); RED CELL DISTRI WIDTH 13.4 % (0-14.5); WHITE BLOOD COUNT 3.1 10*3/uL (4.8-10.8)
[2019-05-20 08:00] VITALS: BP 110/52
[2019-05-20 08:01] LABS: ALBUMIN 2.8 gm/dl (3.1-4.5); BUN 9 mg/dl (7-24); CHLORIDE 111 mmol/L (98-107); CREATININE 0.68 mg/dL (0.55-1.02); POTASSIUM 3.7 mmol/L (3.5-5.1); SGOT/AST 27 IU/L (3-35); SGPT/ALT 23 U/L (12-78); SODIUM 144 mmol/L (136-145)
[2019-05-20 08:03] LABS: ALKALINE PHOSPHATASE 111 U/L (45-117); PHOSPHOROUS 3.5 mg/dL (2.5-4.9); TOTAL PROTEIN 5.8 gm/dL (6.4-8.2)
[2019-05-20 08:20] LABS: INTERNATIONAL NORM RATIO > 9.3 (2.0-3.5)
--- NOTE | 2019-05-20 08:32 | NUR ---
DR AMIN NOTIFIED OF CRITICAL LAB INR >9.3, NO ORDERS RECEIVED AT THIS TIME
--- NOTE | 2019-05-20 09:00 | NUR ---
Lab Director in to talk to patient. Patient states lives at home with friend. There are few steps in the home. Physician: lito arriola Pharmacy: [facility] health services: none Patient's level of ADLs: INDEPENDENT Patient has working utilities: all working DME: nebulizer Follow-up physician's appointment after d/c: will be made by hospitalist nurse director upon discharge Does patient want to access PORTAL?: no Discharge plan discussed with patient, she lives at home, is independent in adls and ambulation, she states she will return home when able and denies any home needs. GABBY HESS
--- NOTE | 2019-05-20 09:27 | NUR ---
PATIENT MEDICATED WITH TYLENOL FOR PAIN AT THIS TIME FOR STATED PAIN OF 9 OUT OF 10 IN HER LEFT LEG AND FOOT WHICH IS ONGOING PAIN PER PATIENT. WILL CONTINUE TO MONITOR AND REASSESS.
--- NOTE | 2019-05-20 10:30 | NUR ---
Another Multi-Disciplinary Team meeting was held on 05/20/19, for the purpose of discharge planning. patient will return home with potential discharge tomorrow, Sunday GABBY HESS
--- NOTE | 2019-05-20 11:32 | NUR ---
Faxed palliative care order to [facility] and notified palliative care nurseMaryann
[2019-05-20 12:00] VITALS: BP 94/50
--- NOTE | 2019-05-20 12:11 | NUR ---
PT COMPLAIN OF PAIN RIGHT LEG 05/13, NORCO GIVEN
--- NOTE | 2019-05-20 12:21 | NUR ---
palliative care notified of new consult. maria quinn will see patient tomorrow
[2019-05-20 13:16] LABS: INTERNATIONAL NORM RATIO > 9.3 (2.0-3.5)
[2019-05-20] MEDS ORDERED: NORCO 5-325 TA1 EACH PO (14:13)
--- NOTE | 2019-05-20 15:50 | NUR ---
PATIENT DISCHARGED AT THIS TIME, REFUSED WHEELCHAIR. DISCHARGE INSTRUCTIONS EXPLAINED TO PATIENT, NO QUESTIONS AT THIS TIME. IV REMOVED, PRESSURE DRESSING APPLIED, NO BLEEDING NOTED UPON DISCHARGE. DAUGHTER TAKING PATIENT HOME.
== END 2019-05-20 15:50 | disposition home or self-care (01) | DRG 813 ==
LOC: ED 13:16 → 4E 14:19 → EDHOLD 14:19 → 4E 14:31
PROVIDERS: Family Medicine; Student in an Organized Health Care Education/Training Program; ADMIT Internal Medicine
DX: D68.32 Hemorrhagic disorder due to extrinsic circulating anticoagulants (principal); I82.402 Acute embolism and thrombosis of unspecified deep veins of left lower extremity; D68.59 Other primary thrombophilia; I50.32 Chronic diastolic (congestive) heart failure; I25.10 Atherosclerotic heart disease of native coronary artery without angina pectoris; I48.2 Chronic atrial fibrillation; I11.0 Hypertensive heart disease with heart failure; J44.9 Chronic obstructive pulmonary disease, unspecified; K21.9 Gastro-esophageal reflux disease without esophagitis; E78.00 Pure hypercholesterolemia, unspecified; T45.515A Adverse effect of anticoagulants, initial encounter; E55.9 Vitamin D deficiency, unspecified; E11.65 Type 2 diabetes mellitus with hyperglycemia; E66.09 Other obesity due to excess calories; Z79.899 Other long term (current) drug therapy; Z79.82 Long term (current) use of aspirin; Z79.84 Long term (current) use of oral hypoglycemic drugs; Z87.440 Personal history of urinary (tract) infections; Z95.1 Presence of aortocoronary bypass graft; Z98.891 History of uterine scar from previous surgery; Z95.2 Presence of prosthetic heart valve; Z82.49 Family history of ischemic heart disease and other diseases of the circulatory system; Z79.01 Long term (current) use of anticoagulants; Y92.89 Other specified places as the place of occurrence of the external cause; Z68.33 Body mass index [BMI] 33.0-33.9, adult

== ENCOUNTER → 2019-05-19 | Outpatient (CLI) | payer OTHER, MEDICAID ==
[~2019-05-19] MED LIST changes: +MAPAP ARTHRITI650 MG PO; +NORCO 5-325 TA1 EACH PO; +SYMB160 INH; +TRULICITY1.5 MG/0.5 SC
[2019-05-19 12:45] LABS: INTERNATIONAL NORM RATIO > 9.3 (2.0-3.5)
== END | disposition home or self-care (01) ==
LOC: LAB 11:44
PROVIDERS: Nurse Practitioner Family
DX: I82.4Z2 Acute embolism and thrombosis of unspecified deep veins of left distal lower extremity (principal)

== ENCOUNTER → 2019-05-22 | Outpatient (CLI) | payer OTHER, MEDICAID ==
[~2019-05-22] MED LIST changes: +MAPAP ARTHRITI650 MG PO; +NORCO 5-325 TA1 EACH PO; +SYMB160 INH; +TRULICITY1.5 MG/0.5 SC
[2019-05-22 12:22] LABS: INTERNATIONAL NORM RATIO 1.6 (2.0-3.5)
== END | disposition home or self-care (01) ==
LOC: LAB 11:50
PROVIDERS: Family Medicine
DX: D68.32 Hemorrhagic disorder due to extrinsic circulating anticoagulants (principal)

== ENCOUNTER 2020-03-08 13:36 | Emergency (ER) | payer OTHER, MEDICAID ==
[~2020-03-08] VITALS: Ht 157.4 cm; Wt 78.9 kg
[2020-03-08 13:41] VITALS: BP 127/73
[2020-03-08] MEDS ORDERED: CLINDAMYCIN HC300 MG PO (14:22)
[2020-03-08] MEDS ORDERED: NAPROSYN500 MG PO (14:22)
== END 2020-03-08 14:33 | disposition home or self-care (01) ==
LOC: ED 13:36
DX: K04.7 Periapical abscess without sinus (principal); Z79.899 Other long term (current) drug therapy; Z79.82 Long term (current) use of aspirin

== ENCOUNTER 2020-07-10 07:54 | Emergency (ER) | payer OTHER, MEDICAID ==
[~2020-07-10] VITALS: Ht 157.4 cm; Wt 74.8 kg
[~2020-07-10 07:54] MED LIST changes: +NAPROSYN500 MG PO
[2020-07-10 08:23] LABS: BASO % 0.8 % (0.0-1.0); EOS % 0.8 % (1.0-4.0); LYMPH # 0.9 10*3/uL (1.3-4.4); LYMPH % 34.3 % (27.0-41.0); MEAN CELL VOLUME 99.1 fl (81.0-99.0); MEAN CORPUSCULAR HGB 33.6 pg (27.0-31.0); MEAN PLATELET VOLUME 11.7 fl (9.6-12.3); MONO # 0.2 10*3/uL (0.1-1.0); MONO % 9.3 % (3.0-9.0); NEUT # 1.4 10*3/uL (2.3-7.9); NEUT % 54.8 % (47.0-73.0); PLATELET COUNT AUTOMATED 71 10*3/uL (130-400); RED BLOOD COUNT 4.34 10*6/uL (4.10-5.10); RED CELL DISTRI WIDTH 13.3 % (0-14.5); WHITE BLOOD COUNT 2.5 10*3/uL (4.8-10.8)
[2020-07-10 08:31] LABS: INTERNATIONAL NORM RATIO 1.1 (2.0-3.5)
[2020-07-10 08:41] LABS: ALBUMIN 3.1 gm/dl (3.1-4.5); ALKALINE PHOSPHATASE 108 U/L (45-117); BUN 8 mg/dl (7-24); CHLORIDE 107 mmol/L (98-107); CREATININE 0.87 mg/dL (0.55-1.02); POTASSIUM 3.9 mmol/L (3.5-5.1); SGOT/AST 68 IU/L (3-35); SGPT/ALT 40 U/L (12-78); SODIUM 139 mmol/L (136-145); TOTAL PROTEIN 6.8 gm/dL (6.4-8.2)
[2020-07-10 08:42] LABS: TROPONIN I < 0.015 ng/ml (<0.045)
[2020-07-10 09:20] VITALS: BP 139/77
[2020-07-10] MEDS ORDERED: AMOXICILLIN500 M2 PO (10:14)
[2020-07-10] MEDS ORDERED: CLINDAMYCIN HC300 MG PO (10:14)
[2020-07-10] MEDS ORDERED: ZOFRAN4 MG PO (10:14)
== END 2020-07-10 10:38 | disposition home or self-care (01) ==
LOC: ED 07:54
PROVIDERS: Emergency Medicine
DX: K04.7 Periapical abscess without sinus (principal); R10.9 Unspecified abdominal pain; I11.0 Hypertensive heart disease with heart failure; I50.9 Heart failure, unspecified; I48.91 Unspecified atrial fibrillation; Z79.899 Other long term (current) drug therapy; Z79.82 Long term (current) use of aspirin

== ENCOUNTER 2020-12-07 01:39 | Observation (INO) | payer OTHER, MEDICAID ==
[~2020-12-07] VITALS: Ht 157.4 cm; Wt 74.8 kg
[~2020-12-07 01:39] MED LIST changes: +ZOFRAN4 MG PO
[2020-12-07 01:44] VITALS: BP 119/61
[2020-12-07 02:16] LABS: EOS # 0.1 10*3/uL (0.0-0.4); EOS % 1.6 % (1.0-4.0); HEMATOCRIT 38.1 % (37.0-47.0); LYMPH % 32.4 % (27.0-41.0); MEAN CELL VOLUME 102.7 fl (81.0-99.0); MEAN CORPUSCULAR HGB 34.8 pg (27.0-31.0); MEAN CORPUSCULAR HGB CONC 33.9 g/dl (33.0-37.0); MEAN PLATELET VOLUME 11.3 fl (9.6-12.3); MONO # 0.2 10*3/uL (0.1-1.0); MONO % 7.2 % (3.0-9.0); NEUT # 1.8 10*3/uL (2.3-7.9); NEUT % 57.8 % (47.0-73.0); PLATELET COUNT AUTOMATED 75 10*3/uL (130-400); RED BLOOD COUNT 3.71 10*6/uL (4.10-5.10); RED CELL DISTRI WIDTH 13.6 % (0-14.5); WHITE BLOOD COUNT 3.1 10*3/uL (4.8-10.8)
[2020-12-07 02:31] LABS: ALBUMIN 2.8 gm/dl (3.1-4.5); ALKALINE PHOSPHATASE 138 U/L (45-117); BUN 14 mg/dl (7-24); CHLORIDE 109 mmol/L (98-107); LIPASE 80 U/L (73-393); SGOT/AST 38 IU/L (3-35); SGPT/ALT 34 U/L (12-78); SODIUM 140 mmol/L (136-145); TOTAL PROTEIN 6.4 gm/dL (6.4-8.2)
[2020-12-07 05:00] LABS: INTERNATIONAL NORM RATIO 1.1 (2.0-3.5)
[2020-12-07 05:35] VITALS: BP 111/47
[2020-12-07] MEDS ORDERED: WARFARIN SODIUM4 MG PO (05:51)
[2020-12-07] MEDS ORDERED: MAPAP ARTHRITI650 MG PO (05:54)
[2020-12-07] MEDS ORDERED: GLUCOPHAGE1000 MG PO (05:56)
[2020-12-07] MEDS ORDERED: GLIPIZIDE10 M2 PO (05:57)
[2020-12-07] MEDS ORDERED: BIOTIN5000 MC1 SL (05:58)
[2020-12-07 08:00] VITALS: BP 98/60
[2020-12-07 11:46] LABS: BILIRUBIN 1+ (Negative); BLOOD Negative (Negative); CLARITY Clear (Clear); COLOR Orange (Yellow); GLUCOSE Negative (Negative); KETONE Negative (Negative); LEUKO ESTERASE 1+ (Negative); NITRITE Positive (Negative); SPECIFIC GRAVITY >= 1.030 (1.001-1.030)
[2020-12-07 12:00] VITALS: BP 95/45
[2020-12-07 12:14] LABS: BACTERIA TRACE; CALCIUM OXALATE CRYSTALS 1+; EPITHELIAL CELLS 0-2; WBC 0-2 wbc/hpf (0-5)
[2020-12-07 16:00] VITALS: BP 87/33
[2020-12-07 20:00] VITALS: BP 101/51
[2020-12-08] VITALS (10 sets, daily range): BP systolic 78–151; BP diastolic 40–70
[2020-12-08 06:23] LABS: EOS # 0.1 10*3/uL (0.0-0.4); EOS % 1.7 % (1.0-4.0); HEMATOCRIT 39.8 % (37.0-47.0); LYMPH # 1.1 10*3/uL (1.3-4.4); LYMPH % 26.9 % (27.0-41.0); MEAN CELL VOLUME 103.6 fl (81.0-99.0); MEAN CORPUSCULAR HGB 34.1 pg (27.0-31.0); MEAN CORPUSCULAR HGB CONC 32.9 g/dl (33.0-37.0); MEAN PLATELET VOLUME 11.2 fl (9.6-12.3); MONO # 0.3 10*3/uL (0.1-1.0); MONO % 6.3 % (3.0-9.0); NEUT # 2.7 10*3/uL (2.3-7.9); NEUT % 63.9 % (47.0-73.0); PLATELET COUNT AUTOMATED 87 10*3/uL (130-400); RED BLOOD COUNT 3.84 10*6/uL (4.10-5.10); RED CELL DISTRI WIDTH 14.1 % (0-14.5); WHITE BLOOD COUNT 4.2 10*3/uL (4.8-10.8)
[2020-12-08 06:29] LABS: INTERNATIONAL NORM RATIO 1.3 (2.0-3.5)
[2020-12-08 06:50] LABS: ALBUMIN 2.8 gm/dl (3.1-4.5); ALKALINE PHOSPHATASE 127 U/L (45-117); BUN 14 mg/dl (7-24); CHLORIDE 111 mmol/L (98-107); CREATININE 0.89 mg/dL (0.55-1.02); POTASSIUM 4.1 mmol/L (3.5-5.1); SGOT/AST 33 IU/L (3-35); SGPT/ALT 36 U/L (12-78); SODIUM 140 mmol/L (136-145); TOTAL PROTEIN 6.7 gm/dL (6.4-8.2)
[2020-12-09] VITALS (8 sets, daily range): BP systolic 90–149; BP diastolic 38–67
[2020-12-09 13:35] LABS: INTERNATIONAL NORM RATIO 1.6 (2.0-3.5)
[2020-12-10] VITALS: BP 131/57
[2020-12-10 06:52] LABS: INTERNATIONAL NORM RATIO 1.4 (2.0-3.5)
[2020-12-10 08:00] VITALS: BP 112/50
[2020-12-10] MEDS ORDERED: LOPRESSOR25 MG PO (11:45)
[2020-12-10] MEDS ORDERED: LISINOPRIL2.5 MG PO (11:46)
== END 2020-12-10 12:37 | disposition home or self-care (01) ==
LOC: ED 01:39 → 5E 05:03 → EDHOLD 05:03 → 5E 05:39
PROVIDERS: Emergency Medicine; Student in an Organized Health Care Education/Training Program; ADMIT Internal Medicine; ATTEND Internal Medicine
DX: K29.00 Acute gastritis without bleeding (principal); K21.00 Gastro-esophageal reflux disease with esophagitis, without bleeding; K80.20 Calculus of gallbladder without cholecystitis without obstruction; I25.10 Atherosclerotic heart disease of native coronary artery without angina pectoris; I10 Essential (primary) hypertension; E78.00 Pure hypercholesterolemia, unspecified; I48.20 Chronic atrial fibrillation, unspecified; J44.9 Chronic obstructive pulmonary disease, unspecified; I50.32 Chronic diastolic (congestive) heart failure; E66.01 Morbid (severe) obesity due to excess calories; D68.59 Other primary thrombophilia; E11.65 Type 2 diabetes mellitus with hyperglycemia; E55.9 Vitamin D deficiency, unspecified; E43 Unspecified severe protein-calorie malnutrition; D61.818 Other pancytopenia

== ENCOUNTER → 2021-02-22 | Outpatient (CLI) | payer OTHER ==
[~2021-02-22] MED LIST changes: +BIOTIN5000 MC1 SL; +GLIPIZIDE10 M2 PO; +GLUCOPHAGE1000 MG PO; +LISINOPRIL2.5 MG PO; +LOPRESSOR25 MG PO; +WARFARIN SODIUM4 MG PO
== END | disposition home or self-care (01) ==
LOC: US 08:30
PROVIDERS: ATTEND Internal Medicine
DX: I70.203 Unspecified atherosclerosis of native arteries of extremities, bilateral legs (principal)

== ENCOUNTER 2021-03-28 08:18 | Emergency (ER) | payer OTHER ==
[2021-03-28 08:51] LABS: BASO % 0.9 % (0.0-1.0); EOS # 0.1 10*3/uL (0.0-0.4); EOS % 2.9 % (1.0-4.0); HEMATOCRIT 39.7 % (37.0-47.0); LYMPH # 1.2 10*3/uL (1.3-4.4); LYMPH % 35.6 % (27.0-41.0); MEAN CELL VOLUME 101.3 fl (81.0-99.0); MEAN CORPUSCULAR HGB 34.9 pg (27.0-31.0); MEAN CORPUSCULAR HGB CONC 34.5 g/dl (33.0-37.0); MEAN PLATELET VOLUME 10.9 fl (9.6-12.3); MONO # 0.3 10*3/uL (0.1-1.0); MONO % 7.2 % (3.0-9.0); NEUT # 1.9 10*3/uL (2.3-7.9); NEUT % 53.1 % (47.0-73.0); PLATELET COUNT AUTOMATED 89 10*3/uL (130-400); RED BLOOD COUNT 3.92 10*6/uL (4.10-5.10); RED CELL DISTRI WIDTH 13.5 % (0-14.5); WHITE BLOOD COUNT 3.5 10*3/uL (4.8-10.8)
[2021-03-28 09:00] LABS: INTERNATIONAL NORM RATIO 1.4 (2.0-3.5)
[2021-03-28 09:14] LABS: ALBUMIN 3.1 gm/dl (3.1-4.5); ALKALINE PHOSPHATASE 150 U/L (45-117); BUN 12 mg/dl (7-24); CHLORIDE 113 mmol/L (98-107); CREATININE 0.71 mg/dL (0.55-1.02); LIPASE 84 U/L (73-393); POTASSIUM 3.9 mmol/L (3.5-5.1); SGOT/AST 44 IU/L (3-35); SGPT/ALT 37 U/L (12-78); SODIUM 141 mmol/L (136-145); TOTAL PROTEIN 6.8 gm/dL (6.4-8.2); TROPONIN I 0.029 ng/ml (<0.045)
[2021-03-28 09:29] LABS: DIGOXIN 0.07 ng/ml (0.8-2.0)
[2021-03-28 09:33] VITALS: BP 113/54
[2021-03-28 10:20] LABS: BILIRUBIN Negative (Negative); BLOOD 3+ (Negative); CLARITY Cloudy (Clear); COLOR Dark Yellow (Yellow); GLUCOSE Negative (Negative); KETONE Negative (Negative); LEUKO ESTERASE 3+ (Negative); NITRITE Negative (Negative)
[2021-03-28 10:32] LABS: RBC TNTC rbc/hpf (0-2); WBC TNTC wbc/hpf (0-5)
[2021-03-28 10:33] LABS: BACTERIA 1+
[2021-03-28] MEDS ORDERED: PREDNISONE50 MG PO (11:59)
[2021-03-28] MEDS ORDERED: CIPRO500 MG PO (11:59)
== END 2021-03-28 12:21 | disposition home or self-care (01) ==
LOC: ED 08:18
PROVIDERS: Emergency Medicine
DX: N39.0 Urinary tract infection, site not specified (principal); L25.9 Unspecified contact dermatitis, unspecified cause; R06.02 Shortness of breath; J44.9 Chronic obstructive pulmonary disease, unspecified; Z79.899 Other long term (current) drug therapy; Z79.01 Long term (current) use of anticoagulants; Z98.890 Other specified postprocedural states

== ENCOUNTER 2021-06-14 12:36 | Emergency (ER) | payer OTHER ==
[~2021-06-14] VITALS: Ht 157.4 cm; Wt 74.8 kg
[~2021-06-14 12:36] MED LIST changes: +CIPRO500 MG PO; +PREDNISONE50 MG PO
[2021-06-14 13:16] VITALS: BP 127/54
[2021-06-14] MEDS ORDERED: SYMB160 INH (13:18)
[2021-06-14] MEDS ORDERED: VENT7GM INH (13:18)
[2021-06-14] MEDS ORDERED: VIBRAMYCIN100 MG PO (20:40)
== END 2021-06-14 21:00 | disposition home or self-care (01) ==
LOC: ED 12:36
DX: J44.1 Chronic obstructive pulmonary disease with (acute) exacerbation (principal); Z20.822 Contact with and (suspected) exposure to COVID-19; Z79.899 Other long term (current) drug therapy

== ENCOUNTER 2022-01-26 11:42 | Emergency (ER) | payer OTHER ==
[~2022-01-26] VITALS: Ht 157.4 cm; Wt 81.2 kg
[~2022-01-26 11:42] MED LIST changes: +VENT7GM INH; +VIBRAMYCIN100 MG PO
[2022-01-26 12:08] VITALS: BP 118/92
[2022-01-26 13:01] LABS: BASO % 0.6 % (0.0-1.0); EOS # 0.1 10*3/uL (0.0-0.4); EOS % 2.2 % (1.0-4.0); HEMATOCRIT 40.8 % (37.0-47.0); LYMPH % 32.5 % (27.0-41.0); MEAN CELL VOLUME 100.5 fl (81.0-99.0); MEAN CORPUSCULAR HGB 34.7 pg (27.0-31.0); MEAN CORPUSCULAR HGB CONC 34.6 g/dl (33.0-37.0); MEAN PLATELET VOLUME 11.5 fl (9.6-12.3); MONO # 0.3 10*3/uL (0.1-1.0); MONO % 8.8 % (3.0-9.0); NEUT # 1.8 10*3/uL (2.3-7.9); NEUT % 55.9 % (47.0-73.0); PLATELET COUNT AUTOMATED 87 10*3/uL (130-400); RED BLOOD COUNT 4.06 10*6/uL (4.10-5.10); RED CELL DISTRI WIDTH 13.4 % (0-14.5); WHITE BLOOD COUNT 3.2 10*3/uL (4.8-10.8)
[2022-01-26 13:10] LABS: ACT PARTIAL THROMBO TIME 28.8 SECONDS (20.0-32.1); INTERNATIONAL NORM RATIO 1.2 (2.0-3.5)
[2022-01-26 13:22] LABS: ALKALINE PHOSPHATASE 127 U/L (45-117); BUN 8 mg/dl (7-24); CHLORIDE 111 mmol/L (98-107); CREATININE 0.77 mg/dL (0.55-1.02); LIPASE 73 U/L (73-393); POTASSIUM 4.3 mmol/L (3.5-5.1); SGOT/AST 33 IU/L (3-35); SGPT/ALT 29 U/L (12-78); SODIUM 140 mmol/L (136-145); TOTAL PROTEIN 6.4 gm/dL (6.4-8.2)
[2022-01-26] MEDS ORDERED: VIBRA-TAB100 MG PO (15:42)
[2022-01-26] MEDS ORDERED: PREDNISONE10 MG PO (15:43)
== END 2022-01-26 16:13 | disposition home or self-care (01) ==
LOC: ED 11:42
PROVIDERS: Emergency Medicine
DX: J18.9 Pneumonia, unspecified organism (principal); J44.1 Chronic obstructive pulmonary disease with (acute) exacerbation; Z79.899 Other long term (current) drug therapy; Z95.1 Presence of aortocoronary bypass graft; Z98.890 Other specified postprocedural states

== ENCOUNTER 2022-10-23 10:59 | Emergency (ER) | payer OTHER ==
[~2022-10-23] VITALS: Wt 81.6 kg
[~2022-10-23 10:59] MED LIST changes: +CARAFATE1 G1 PO; +Coumadin5 MG PO; +JANTOVEN4 M1 PO; +LEVEMIR FL100 UNIT/1 SC; +LEVEMIR100 UNIT/1 SC; +LEVOFLOXACIN500 MG PO; +Lopressor25 MG PO; +ONDANSETRON HYDR8 MG PO; +VIBRA-TAB100 MG PO; +VITAMIN D350 MCG PO
[2022-10-23 11:08] VITALS: BP 113/93
[2022-10-23 13:53] LABS: BASO % 0.3 % (0.0-1.0); EOS # 0.2 10*3/uL (0.0-0.4); EOS % 3.1 % (1.0-4.0); HEMATOCRIT 39.4 % (37.0-47.0); LYMPH # 1.5 10*3/uL (1.3-4.4); LYMPH % 21.7 % (27.0-41.0); MEAN CORPUSCULAR HGB 34.6 pg (27.0-31.0); MEAN CORPUSCULAR HGB CONC 34.3 g/dl (33.0-37.0); MEAN PLATELET VOLUME 10.8 fl (9.6-12.3); MONO # 0.6 10*3/uL (0.1-1.0); MONO % 8.8 % (3.0-9.0); NEUT # 4.4 10*3/uL (2.3-7.9); NEUT % 65.8 % (47.0-73.0); PLATELET COUNT AUTOMATED 117 10*3/uL (130-400); RED CELL DISTRI WIDTH 15.5 % (0-14.5); WHITE BLOOD COUNT 6.7 10*3/uL (4.8-10.8)
[2022-10-23 14:07] LABS: ALKALINE PHOSPHATASE 151 U/L (46-116); BUN 16 mg/dl (9-23); CHLORIDE 103 mmol/L (98-107); POTASSIUM 3.9 mmol/L (3.4-5.1); SGPT/ALT 33 U/L (10-49)
[2022-10-23] MEDS ORDERED: VIBRAMYCIN100 MG PO (14:49)
== END 2022-10-23 15:04 | disposition home or self-care (01) ==
LOC: ED 10:59
PROVIDERS: Nurse Practitioner Family
DX: J44.1 Chronic obstructive pulmonary disease with (acute) exacerbation (principal); H66.91 Otitis media, unspecified, right ear; J06.9 Acute upper respiratory infection, unspecified; E11.9 Type 2 diabetes mellitus without complications; I50.9 Heart failure, unspecified; I11.0 Hypertensive heart disease with heart failure; I48.91 Unspecified atrial fibrillation; Z79.4 Long term (current) use of insulin; Z98.890 Other specified postprocedural states

== ENCOUNTER → 2022-11-13 | Outpatient (CLI) | payer OTHER | END | disposition home or self-care (01) | LOC: RAD 09:05 | PROVIDERS: ATTEND Internal Medicine | DX: M25.551 Pain in right hip (principal); M47.816 Spondylosis without myelopathy or radiculopathy, lumbar region; M25.78 Osteophyte, vertebrae; M48.07 Spinal stenosis, lumbosacral region ==

== ENCOUNTER 2022-12-09 13:55 | Emergency (ER) | payer OTHER ==
[~2022-12-09 13:55] MED LIST changes: +CYCLOBENZAPRINE10 MG PO; +VITAMIN D350 MC2 PO
[2022-12-09 17:00] VITALS: BP 116/69
== END 2022-12-09 18:03 | disposition home or self-care (01) ==
LOC: ED 13:55
DX: T78.3XXA Angioneurotic edema, initial encounter (principal); I50.9 Heart failure, unspecified; Z86.718 Personal history of other venous thrombosis and embolism; I11.0 Hypertensive heart disease with heart failure; E11.9 Type 2 diabetes mellitus without complications; Z79.4 Long term (current) use of insulin; I48.91 Unspecified atrial fibrillation; Z88.8 Allergy status to other drugs, medicaments and biological substances; Z98.890 Other specified postprocedural states

== ENCOUNTER 2023-01-12 11:09 | Emergency (ER) | payer OTHER ==
[~2023-01-12] VITALS: Wt 68.9 kg
[2023-01-12 11:22] VITALS: BP 122/51
[2023-01-12 11:54] LABS: BASO # 0.1 10*3/uL (0.0-0.1); BASO % 1.5 % (0.0-1.0); EOS # 0.3 10*3/uL (0.0-0.4); EOS % 6.5 % (1.0-4.0); HEMATOCRIT 34.5 % (37.0-47.0); LYMPH # 1.1 10*3/uL (1.3-4.4); LYMPH % 27.3 % (27.0-41.0); MEAN CELL VOLUME 99.4 fl (81.0-99.0); MEAN CORPUSCULAR HGB 35.2 pg (27.0-31.0); MEAN CORPUSCULAR HGB CONC 35.4 g/dl (33.0-37.0); MONO # 0.4 10*3/uL (0.1-1.0); MONO % 9.4 % (3.0-9.0); NEUT # 2.2 10*3/uL (2.3-7.9); NEUT % 55.1 % (47.0-73.0); PLATELET COUNT AUTOMATED 114 10*3/uL (130-400); RED BLOOD COUNT 3.47 10*6/uL (4.10-5.10); RED CELL DISTRI WIDTH 14.1 % (0-14.5)
[2023-01-12 12:23] LABS: ALKALINE PHOSPHATASE 141 U/L (46-116); BUN 15 mg/dl (9-23); CHLORIDE 104 mmol/L (98-107); POTASSIUM 4.1 mmol/L (3.4-5.1); SGPT/ALT 30 U/L (10-49); TOTAL PROTEIN 5.8 gm/dL (6.0-8.0)
[2023-01-12 12:51] LABS: BILIRUBIN 1+ (Negative); BLOOD Negative (Negative); CLARITY Cloudy (Clear); COLOR Dark Yellow (Yellow); GLUCOSE Negative (Negative); KETONE Trace (Negative); LEUKO ESTERASE Trace (Negative); NITRITE Negative (Negative); PH 5.5 (4.5-8.0); SPECIFIC GRAVITY >= 1.030 (1.001-1.030)
[2023-01-12 13:05] LABS: EPITHELIAL CELLS TNTC; RBC 0-2 rbc/hpf (0-2); WBC 0-2 wbc/hpf (0-5)
[2023-01-12 13:06] LABS: BACTERIA TRACE
== END 2023-01-12 13:49 | disposition home or self-care (01) ==
LOC: ED 11:09
PROVIDERS: Emergency Medicine
DX: R34 Anuria and oliguria (principal); E11.9 Type 2 diabetes mellitus without complications; J44.9 Chronic obstructive pulmonary disease, unspecified; I11.0 Hypertensive heart disease with heart failure; I50.9 Heart failure, unspecified; I48.91 Unspecified atrial fibrillation; Z86.718 Personal history of other venous thrombosis and embolism; E78.5 Hyperlipidemia, unspecified; Z88.8 Allergy status to other drugs, medicaments and biological substances; Z98.890 Other specified postprocedural states

== ENCOUNTER → 2023-01-25 | Outpatient (CLI) | payer OTHER ==
[2023-01-25 11:05] LABS: BASO # 0.1 10*3/uL (0.0-0.1); BASO % 1.9 % (0.0-1.0); EOS # 0.1 10*3/uL (0.0-0.4); EOS % 3.8 % (1.0-4.0); HEMATOCRIT 37.4 % (37.0-47.0); LYMPH # 1.1 10*3/uL (1.3-4.4); LYMPH % 29.8 % (27.0-41.0); MEAN CELL VOLUME 98.9 fl (81.0-99.0); MEAN CORPUSCULAR HGB 34.1 pg (27.0-31.0); MEAN CORPUSCULAR HGB CONC 34.5 g/dl (33.0-37.0); MEAN PLATELET VOLUME 10.7 fl (9.6-12.3); MONO # 0.2 10*3/uL (0.1-1.0); MONO % 6.2 % (3.0-9.0); NEUT # 2.2 10*3/uL (2.3-7.9); PLATELET COUNT AUTOMATED 152 10*3/uL (130-400); RED BLOOD COUNT 3.78 10*6/uL (4.10-5.10); RED CELL DISTRI WIDTH 14.1 % (0-14.5); WHITE BLOOD COUNT 3.7 10*3/uL (4.8-10.8)
[2023-01-25 11:16] LABS: ACT PARTIAL THROMBO TIME 30.8 SECONDS (20.0-32.1); INTERNATIONAL NORM RATIO 1.4 (2.0-3.5)
[2023-01-25 11:23] LABS: BUN 12 mg/dl (9-23); CHLORIDE 104 mmol/L (98-107); POTASSIUM 3.9 mmol/L (3.4-5.1)
== END | disposition home or self-care (01) ==
LOC: LAB 10:33
PROVIDERS: ATTEND Internal Medicine Cardiovascular Disease
DX: I05.2 Rheumatic mitral stenosis with insufficiency (principal)

== ENCOUNTER → 2023-03-28 | Outpatient (CLI) | payer OTHER ==
[~2023-03-28] MED LIST changes: +BEVESPI AEROS10.7 GM IH; +DIGOXIN125 MCG PO; +DULERA 200 MCG-13 GM IH; +FAMOTIDINE20 M1 PO; +FUROSEMIDE40 MG PO; +Levemir FlexPen 100; +OXYCODONE-ACET1 EAC3 PO; +ROSUVASTATIN CA20 MG PO
[2023-03-28 12:05] LABS: POTASSIUM 2.8 mmol/L (3.4-5.1); TOTAL PROTEIN 6.2 gm/dL (6.0-8.0)
== END | disposition home or self-care (01) ==
LOC: LAB 10:51
DX: I05.0 Rheumatic mitral stenosis (principal)

== ENCOUNTER → 2023-03-30 | Outpatient (CLI) | payer OTHER | END | disposition home or self-care (01) | LOC: LAB 00:35 | PROVIDERS: ATTEND Internal Medicine Cardiovascular Disease | DX: E87.6 Hypokalemia (principal) ==

== ENCOUNTER 2023-03-31 19:58 | Emergency (ER) | payer OTHER ==
[~2023-03-31] VITALS: Ht 157.4 cm; Wt 66.8 kg
[~2023-03-31 19:58] MED LIST changes: -BEVESPI AEROS10.7 GM IH; -DIGOXIN125 MCG PO; -DULERA 200 MCG-13 GM IH; -FAMOTIDINE20 M1 PO; -FUROSEMIDE40 MG PO; -Levemir FlexPen 100; -OXYCODONE-ACET1 EAC3 PO; -ROSUVASTATIN CA20 MG PO
[2023-03-31 20:13] VITALS: BP 120/57
[2023-03-31] MEDS ORDERED: BEVESPI AEROS10.7 GM IH (20:18)
[2023-03-31] MEDS ORDERED: ASPIRIN81 M1 PO (20:20)
[2023-03-31] MEDS ORDERED: DIGOXIN125 MCG PO (20:21)
[2023-03-31] MEDS ORDERED: DULERA 200 MCG-13 GM IH (20:23)
[2023-03-31] MEDS ORDERED: FAMOTIDINE20 M1 PO (20:25)
[2023-03-31] MEDS ORDERED: FUROSEMIDE40 MG PO (20:26)
[2023-03-31] MEDS ORDERED: Levemir FlexPen 100 (20:29)
[2023-03-31] MEDS ORDERED: OXYCODONE-ACET1 EAC3 PO (20:31)
[2023-03-31 20:32] LABS: BASO # 0.1 10*3/uL (0.0-0.1); BASO % 0.9 % (0.0-1.0); EOS # 0.2 10*3/uL (0.0-0.4); EOS % 2.9 % (1.0-4.0); HEMATOCRIT 34.5 % (37.0-47.0); LYMPH # 1.1 10*3/uL (1.3-4.4); LYMPH % 20.7 % (27.0-41.0); MEAN CELL VOLUME 97.5 fl (81.0-99.0); MEAN CORPUSCULAR HGB 34.5 pg (27.0-31.0); MEAN CORPUSCULAR HGB CONC 35.4 g/dl (33.0-37.0); MEAN PLATELET VOLUME 11.3 fl (9.6-12.3); MONO # 0.5 10*3/uL (0.1-1.0); MONO % 8.6 % (3.0-9.0); NEUT # 3.6 10*3/uL (2.3-7.9); NEUT % 66.5 % (47.0-73.0); PLATELET COUNT AUTOMATED 116 10*3/uL (130-400); RED BLOOD COUNT 3.54 10*6/uL (4.10-5.10); RED CELL DISTRI WIDTH 15.7 % (0-14.5); WHITE BLOOD COUNT 5.5 10*3/uL (4.8-10.8)
[2023-03-31] MEDS ORDERED: WARFARIN SOD5 MG PO (20:33)
[2023-03-31] MEDS ORDERED: ROSUVASTATIN CA20 MG PO (20:34)
[2023-03-31 20:49] LABS: TOTAL PROTEIN 6.4 gm/dL (6.0-8.0)
[2023-03-31 20:50] LABS: POTASSIUM 4.2 mmol/L (3.4-5.1)
== END 2023-03-31 23:44 | disposition home or self-care (01) ==
LOC: ED 19:58
PROVIDERS: Internal Medicine
DX: I13.0 Hypertensive heart and chronic kidney disease with heart failure and stage 1 through stage 4 chronic kidney disease, or unspecified chronic kidney disease (principal); E11.22 Type 2 diabetes mellitus with diabetic chronic kidney disease; N18.4 Chronic kidney disease, stage 4 (severe); I50.9 Heart failure, unspecified; E43 Unspecified severe protein-calorie malnutrition; E83.42 Hypomagnesemia; R79.89 Other specified abnormal findings of blood chemistry; Z88.8 Allergy status to other drugs, medicaments and biological substances; Z79.899 Other long term (current) drug therapy; Z79.82 Long term (current) use of aspirin; Z79.4 Long term (current) use of insulin; Z79.01 Long term (current) use of anticoagulants; Z98.890 Other specified postprocedural states

== ENCOUNTER → 2023-04-16 | Outpatient (CLI) | payer OTHER ==
[~2023-04-16] MED LIST changes: +BEVESPI AEROS10.7 GM IH; +DIGOXIN125 MCG PO; +DULERA 200 MCG-13 GM IH; +FAMOTIDINE20 M1 PO; +FUROSEMIDE40 MG PO; +Levemir FlexPen 100; +OXYCODONE-ACET1 EAC3 PO; +ROSUVASTATIN CA20 MG PO
[2023-04-16 14:36] LABS: POTASSIUM 3.5 mmol/L (3.4-5.1)
== END | disposition home or self-care (01) ==
LOC: LAB 13:39
PROVIDERS: ATTEND Internal Medicine Cardiovascular Disease
DX: E87.6 Hypokalemia (principal)

== ENCOUNTER 2023-05-11 12:39 | Emergency (ER) | payer OTHER ==
[~2023-05-11] VITALS: Ht 157.4 cm; Wt 64.9 kg
[2023-05-11 12:53] VITALS: BP 122/41
[2023-05-11 13:07] LABS: BASO # 0.1 10*3/uL (0.0-0.1); BASO % 1.3 % (0.0-1.0); EOS # 0.2 10*3/uL (0.0-0.4); EOS % 3.5 % (1.0-4.0); HEMATOCRIT 28.4 % (37.0-47.0); LYMPH # 1.2 10*3/uL (1.3-4.4); MEAN CELL VOLUME 101.4 fl (81.0-99.0); MEAN CORPUSCULAR HGB 34.3 pg (27.0-31.0); MEAN CORPUSCULAR HGB CONC 33.8 g/dl (33.0-37.0); MEAN PLATELET VOLUME 10.3 fl (9.6-12.3); MONO # 0.3 10*3/uL (0.1-1.0); MONO % 5.9 % (3.0-9.0); NEUT # 2.9 10*3/uL (2.3-7.9); NEUT % 63.1 % (47.0-73.0); PLATELET COUNT AUTOMATED 71 10*3/uL (130-400); RED CELL DISTRI WIDTH 14.6 % (0-14.5); WHITE BLOOD COUNT 4.6 10*3/uL (4.8-10.8)
[2023-05-11 13:19] LABS: ACT PARTIAL THROMBO TIME 28.2 SECONDS (20.0-32.1); INTERNATIONAL NORM RATIO 1.3 (2.0-3.5)
[2023-05-11 13:28] LABS: TOTAL PROTEIN 5.7 gm/dL (6.0-8.0)
== END 2023-05-11 15:43 | disposition home or self-care (01) ==
LOC: ED 12:39
PROVIDERS: Internal Medicine
DX: R07.89 Other chest pain (principal); M54.9 Dorsalgia, unspecified; I50.9 Heart failure, unspecified; Z86.718 Personal history of other venous thrombosis and embolism; E11.9 Type 2 diabetes mellitus without complications; Z79.4 Long term (current) use of insulin; I10 Essential (primary) hypertension; I48.91 Unspecified atrial fibrillation; Z88.8 Allergy status to other drugs, medicaments and biological substances; Z98.890 Other specified postprocedural states; Z95.5 Presence of coronary angioplasty implant and graft; F17.200 Nicotine dependence, unspecified, uncomplicated

== ENCOUNTER → 2023-05-14 | Outpatient (CLI) | payer OTHER ==
[2023-05-14 10:02] LABS: BASO # 0.1 10*3/uL (0.0-0.1); BASO % 1.4 % (0.0-1.0); EOS # 0.2 10*3/uL (0.0-0.4); EOS % 4.5 % (1.0-4.0); HEMATOCRIT 31.6 % (37.0-47.0); LYMPH # 1.1 10*3/uL (1.3-4.4); MEAN CORPUSCULAR HGB 34.8 pg (27.0-31.0); MEAN CORPUSCULAR HGB CONC 34.5 g/dl (33.0-37.0); MEAN PLATELET VOLUME 11.2 fl (9.6-12.3); MONO # 0.4 10*3/uL (0.1-1.0); MONO % 7.4 % (3.0-9.0); NEUT # 3.3 10*3/uL (2.3-7.9); NEUT % 64.5 % (47.0-73.0); PLATELET COUNT AUTOMATED 102 10*3/uL (130-400); RED BLOOD COUNT 3.13 10*6/uL (4.10-5.10); RED CELL DISTRI WIDTH 14.9 % (0-14.5); WHITE BLOOD COUNT 5.1 10*3/uL (4.8-10.8)
[2023-05-14 10:24] LABS: BUN 12 mg/dl (9-23); CHLORIDE 103 mmol/L (98-107); POTASSIUM 3.3 mmol/L (3.4-5.1)
== END | disposition home or self-care (01) ==
LOC: LAB 09:25
PROVIDERS: ATTEND Physician Assistant Medical
DX: J90 Pleural effusion, not elsewhere classified (principal); I05.0 Rheumatic mitral stenosis; I51.7 Cardiomegaly; J30.89 Other allergic rhinitis; J45.40 Moderate persistent asthma, uncomplicated; J94.8 Other specified pleural conditions; Z68.27 Body mass index [BMI] 27.0-27.9, adult

== ENCOUNTER → 2023-06-27 | Outpatient (CLI) | payer OTHER ==
[2023-06-27 13:58] LABS: HEMATOCRIT 32.1 % (37.0-47.0); MEAN CELL VOLUME 103.2 fl (81.0-99.0); PLATELET COUNT AUTOMATED 108 10*3/uL (130-400); RED BLOOD COUNT 3.11 10*6/uL (4.10-5.10); RED CELL DISTRI WIDTH 14.6 % (0-14.5); WHITE BLOOD COUNT 3.5 10*3/uL (4.8-10.8)
[2023-06-27 14:14] LABS: INTERNATIONAL NORM RATIO 1.6 (2.0-3.5)
[2023-06-27 14:17] LABS: POTASSIUM 4.8 mmol/L (3.4-5.1)
== END | disposition home or self-care (01) ==
LOC: LAB 12:40
PROVIDERS: ATTEND Student in an Organized Health Care Education/Training Program
DX: D61.818 Other pancytopenia (principal); R18.8 Other ascites; E87.6 Hypokalemia; Z95.2 Presence of prosthetic heart valve

== ENCOUNTER 2023-07-02 19:50 | Emergency (ER) | payer OTHER ==
[~2023-07-02] VITALS: Ht 157.4 cm; Wt 64.0 kg
[2023-07-02 20:11] VITALS: BP 121/46
[2023-07-02 21:02] LABS: BASO % 0.9 % (0.0-1.0); EOS # 0.1 10*3/uL (0.0-0.4); EOS % 4.3 % (1.0-4.0); HEMATOCRIT 30.4 % (37.0-47.0); LYMPH % 32.2 % (27.0-41.0); MEAN CORPUSCULAR HGB 34.9 pg (27.0-31.0); MEAN CORPUSCULAR HGB CONC 34.2 g/dl (33.0-37.0); MEAN PLATELET VOLUME 10.3 fl (9.6-12.3); MONO # 0.3 10*3/uL (0.1-1.0); MONO % 9.3 % (3.0-9.0); NEUT # 1.7 10*3/uL (2.3-7.9); NEUT % 53.3 % (47.0-73.0); PLATELET COUNT AUTOMATED 99 10*3/uL (130-400); RED BLOOD COUNT 2.98 10*6/uL (4.10-5.10); RED CELL DISTRI WIDTH 14.5 % (0-14.5); WHITE BLOOD COUNT 3.2 10*3/uL (4.8-10.8)
[2023-07-02 21:17] LABS: BILIRUBIN Negative (Negative); BLOOD Trace-Intact (Negative); CLARITY Clear (Clear); COLOR Yellow (Yellow); GLUCOSE Negative (Negative); KETONE Negative (Negative); LEUKO ESTERASE Negative (Negative); NITRITE Negative (Negative)
[2023-07-02 21:18] LABS: POTASSIUM 3.7 mmol/L (3.4-5.1); TOTAL PROTEIN 6.3 gm/dL (6.0-8.0)
[2023-07-02 21:22] LABS: BACTERIA TRACE; WBC 0-2 wbc/hpf (0-5)
[2023-07-02 21:23] LABS: ACT PARTIAL THROMBO TIME 31.9 SECONDS (20.0-32.1); INTERNATIONAL NORM RATIO 1.7 (2.0-3.5)
[2023-07-04 05:06] LABS: HEPATITIS B SURFACE AG Negative (Negative)
== END 2023-07-03 01:35 | disposition home or self-care (01) ==
LOC: ED 19:50
PROVIDERS: Internal Medicine
DX: R33.9 Retention of urine, unspecified (principal); I25.10 Atherosclerotic heart disease of native coronary artery without angina pectoris; I48.91 Unspecified atrial fibrillation; Z88.8 Allergy status to other drugs, medicaments and biological substances; Z98.890 Other specified postprocedural states; I11.0 Hypertensive heart disease with heart failure; I50.9 Heart failure, unspecified; Z86.718 Personal history of other venous thrombosis and embolism; E11.9 Type 2 diabetes mellitus without complications; Z79.4 Long term (current) use of insulin

== ENCOUNTER 2023-07-12 11:35 | Emergency (ER) | payer OTHER ==
[~2023-07-12] VITALS: Wt 64.0 kg
[2023-07-12 12:06] VITALS: BP 117/48
[2023-07-12 13:14] LABS: EOS # 0.1 10*3/uL (0.0-0.4); EOS % 3.8 % (1.0-4.0); HEMATOCRIT 27.3 % (37.0-47.0); LYMPH # 0.7 10*3/uL (1.3-4.4); LYMPH % 34.8 % (27.0-41.0); MEAN CORPUSCULAR HGB 34.8 pg (27.0-31.0); MEAN CORPUSCULAR HGB CONC 34.8 g/dl (33.0-37.0); MEAN PLATELET VOLUME 10.6 fl (9.6-12.3); MONO # 0.2 10*3/uL (0.1-1.0); MONO % 11.4 % (3.0-9.0); PLATELET COUNT AUTOMATED 80 10*3/uL (130-400); RED BLOOD COUNT 2.73 10*6/uL (4.10-5.10); RED CELL DISTRI WIDTH 14.6 % (0-14.5); WHITE BLOOD COUNT 2.1 10*3/uL (4.8-10.8)
[2023-07-12 13:17] LABS: BILIRUBIN Negative (Negative); BLOOD Trace-Lysed (Negative); CLARITY Clear (Clear); COLOR Dark Yellow (Yellow); GLUCOSE Negative (Negative); KETONE Trace (Negative); LEUKO ESTERASE Negative (Negative); NITRITE Negative (Negative); PH 5.5 (4.5-8.0)
[2023-07-12 13:24] LABS: ACT PARTIAL THROMBO TIME 29.6 SECONDS (20.0-32.1)
[2023-07-12 13:36] LABS: POTASSIUM 3.8 mmol/L (3.4-5.1); TOTAL PROTEIN 5.7 gm/dL (6.0-8.0)
[2023-07-12 13:39] LABS: HYALINE CAST 0-2
== END 2023-07-12 16:47 | disposition home or self-care (01) ==
LOC: ED 11:35
PROVIDERS: Nurse Practitioner
DX: R33.9 Retention of urine, unspecified (principal); I11.0 Hypertensive heart disease with heart failure; I50.9 Heart failure, unspecified; Z86.718 Personal history of other venous thrombosis and embolism; E11.9 Type 2 diabetes mellitus without complications; Z79.4 Long term (current) use of insulin; I48.91 Unspecified atrial fibrillation; Z88.8 Allergy status to other drugs, medicaments and biological substances; Z98.890 Other specified postprocedural states; Z95.5 Presence of coronary angioplasty implant and graft

== ENCOUNTER → 2023-07-25 | Outpatient (CLI) | payer OTHER | END | disposition home or self-care (01) | LOC: LAB 09:53 → CT 10:00 | PROVIDERS: ATTEND Urology | DX: K74.60 Unspecified cirrhosis of liver (principal); K76.6 Portal hypertension; R33.9 Retention of urine, unspecified; J90 Pleural effusion, not elsewhere classified; R18.8 Other ascites; N26.1 Atrophy of kidney (terminal) ==

== ENCOUNTER → 2023-09-13 | Outpatient (CLI) | payer OTHER, MEDICAID ==
[~2023-09-13] MED LIST changes: +ALDACTONE25 MG PO; +DULE1ARO INH; +METOCLOPRAMIDE H5 M1 PO
== END | disposition home or self-care (01) ==
LOC: EDSTATUS 11:00
PROVIDERS: ATTEND Student in an Organized Health Care Education/Training Program
DX: R18.8 Other ascites (principal); K74.60 Unspecified cirrhosis of liver

== ENCOUNTER → 2023-09-27 | Outpatient (CLI) | payer OTHER, MEDICAID | END | disposition home or self-care (01) | LOC: EDSTATUS 11:00 | PROVIDERS: ATTEND Student in an Organized Health Care Education/Training Program | DX: R18.8 Other ascites (principal); K74.60 Unspecified cirrhosis of liver ==

== ENCOUNTER → 2023-10-10 | Outpatient (CLI) | payer OTHER, MEDICAID ==
[~2023-10-10] MED LIST changes: +SODIUM BICARBONATE 4.2% 5 ML VIAL ONE
[2023-10-10 11:07] LABS: ACT PARTIAL THROMBO TIME 40.2 SECONDS (20.0-32.1)
[2023-10-10 11:24] LABS: POTASSIUM 3.5 mmol/L (3.4-5.1); TOTAL PROTEIN 5.9 gm/dL (6.0-8.0)
[2023-10-10 11:48] LABS: EOS # 0.1 10*3/uL (0.0-0.4); EOS % 2.6 % (1.0-4.0); HEMATOCRIT 33.3 % (37.0-47.0); LYMPH % 23.8 % (27.0-41.0); MEAN CELL VOLUME 103.4 fl (81.0-99.0); MEAN CORPUSCULAR HGB 34.2 pg (27.0-31.0); MEAN PLATELET VOLUME 9.7 fl (9.6-12.3); MONO # 0.3 10*3/uL (0.1-1.0); MONO % 7.1 % (3.0-9.0); NEUT # 2.7 10*3/uL (2.3-7.9); NEUT % 65.3 % (47.0-73.0); PLATELET COUNT AUTOMATED 129 10*3/uL (130-400); RED BLOOD COUNT 3.22 10*6/uL (4.10-5.10); RED CELL DISTRI WIDTH 13.9 % (0-14.5); WHITE BLOOD COUNT 4.2 10*3/uL (4.8-10.8)
== END | disposition home or self-care (01) ==
LOC: LAB 00:41 → EDSTATUS 11:00
PROVIDERS: ATTEND Student in an Organized Health Care Education/Training Program
DX: K74.60 Unspecified cirrhosis of liver (principal); R18.8 Other ascites

== ENCOUNTER → 2023-10-17 | Outpatient (CLI) | payer OTHER, MEDICAID ==
[~2023-10-17] MED LIST changes: -SODIUM BICARBONATE 4.2% 5 ML VIAL ONE
== END | disposition home or self-care (01) ==
LOC: LAB 12:49
PROVIDERS: ATTEND Nurse Practitioner Family
DX: I50.22 Chronic systolic (congestive) heart failure (principal); J44.9 Chronic obstructive pulmonary disease, unspecified; I48.91 Unspecified atrial fibrillation

== ENCOUNTER → 2023-11-01 | Outpatient (CLI) | payer OTHER, MEDICAID ==
[~2023-11-01] MED LIST changes: +DIGITEK250 MCG PO; +JANTOVEN5 MG PO; +KLOR-CON M2020 ME1 PO; +LIPITOR20 MG PO; +LIPITOR40 MG PO; +SODIUM BICARBONATE 4.2% 5 ML VIAL ONE; +VITAMIN D350 MC4 PO
[2023-11-01 12:09] LABS: BASO % 0.8 % (0.0-1.0); EOS # 0.2 10*3/uL (0.0-0.4); HEMATOCRIT 34.2 % (37.0-47.0); LYMPH # 1.4 10*3/uL (1.3-4.4); MEAN CELL VOLUME 101.2 fl (81.0-99.0); MEAN CORPUSCULAR HGB CONC 33.6 g/dl (33.0-37.0); MONO # 0.5 10*3/uL (0.1-1.0); MONO % 9.1 % (3.0-9.0); NEUT % 59.7 % (47.0-73.0); PLATELET COUNT AUTOMATED 140 10*3/uL (130-400); RED BLOOD COUNT 3.38 10*6/uL (4.10-5.10); RED CELL DISTRI WIDTH 14.4 % (0-14.5); WHITE BLOOD COUNT 5.1 10*3/uL (4.8-10.8)
[2023-11-01 12:13] LABS: ACT PARTIAL THROMBO TIME 30.5 SECONDS (20.0-32.1)
[2023-11-01 12:24] LABS: POTASSIUM 3.5 mmol/L (3.4-5.1); TOTAL PROTEIN 6.5 gm/dL (6.0-8.0)
== END | disposition home or self-care (01) ==
LOC: EDSTATUS 10-25 11:00
PROVIDERS: ATTEND Student in an Organized Health Care Education/Training Program
DX: R18.8 Other ascites (principal); K74.60 Unspecified cirrhosis of liver

== ENCOUNTER → 2023-11-15 | Outpatient (CLI) | payer OTHER, MEDICAID | END | disposition home or self-care (01) | LOC: EDSTATUS 11:00 | PROVIDERS: ATTEND Student in an Organized Health Care Education/Training Program | DX: R18.8 Other ascites (principal); K74.60 Unspecified cirrhosis of liver ==

== ENCOUNTER → 2023-11-29 | Outpatient (CLI) | payer OTHER, MEDICAID ==
[~2023-11-29] MED LIST changes: +FUROSEMIDE20 M1 PO; +MIRTAZAPINE7.5 MG PO; -SODIUM BICARBONATE 4.2% 5 ML VIAL ONE; +SPIRONOLACTONE100 MG PO
== END | disposition home or self-care (01) ==
LOC: EDSTATUS 11:00
PROVIDERS: ATTEND Student in an Organized Health Care Education/Training Program
DX: R18.8 Other ascites (principal); K74.60 Unspecified cirrhosis of liver

== ENCOUNTER → 2023-12-05 | Day surgery (SDC) | payer OTHER, MEDICAID ==
[2023-12-05] VITALS (14 sets, daily range): BP systolic 102–133; BP diastolic 41–87
[~2023-12-05] MED LIST changes: +Lidocaine Hydrochloride 2% 10 ML AMP ONE; +Lidocaine Hydrochloride 2% 5 ML SDV ONE; +SODIUM CHLORIDE 0.9% 100 ML IV ONE; +ceFAZolin sodium 1GM/10ML IV SCH; +ceFAZolin sodium/sodium chlor 10 ML IV ONE
[2023-12-05 09:38] LABS: BASO % 0.6 % (0.0-1.0); EOS # 0.1 10*3/uL (0.0-0.4); EOS % 0.9 % (1.0-4.0); HEMATOCRIT 26.9 % (37.0-47.0); LYMPH # 1.2 10*3/uL (1.3-4.4); LYMPH % 17.8 % (27.0-41.0); MEAN CELL VOLUME 105.1 fl (81.0-99.0); MEAN CORPUSCULAR HGB 34.8 pg (27.0-31.0); MEAN CORPUSCULAR HGB CONC 33.1 g/dl (33.0-37.0); MEAN PLATELET VOLUME 10.1 fl (9.6-12.3); MONO # 0.6 10*3/uL (0.1-1.0); NEUT % 72.4 % (47.0-73.0); PLATELET COUNT AUTOMATED 165 10*3/uL (130-400); RED BLOOD COUNT 2.56 10*6/uL (4.10-5.10); RED CELL DISTRI WIDTH 14.6 % (0-14.5); WHITE BLOOD COUNT 6.9 10*3/uL (4.8-10.8)
[2023-12-05 09:48] LABS: ACT PARTIAL THROMBO TIME 31.3 SECONDS (20.0-32.1)
== END | disposition home or self-care (01) ==
LOC: SDC 02:08
PROVIDERS: Radiology Diagnostic Radiology; ATTEND Nurse Practitioner Family
DX: R18.8 Other ascites (principal); J90 Pleural effusion, not elsewhere classified; J45.40 Moderate persistent asthma, uncomplicated; I11.0 Hypertensive heart disease with heart failure; I50.30 Unspecified diastolic (congestive) heart failure; Z98.890 Other specified postprocedural states; Z79.82 Long term (current) use of aspirin; Z79.899 Other long term (current) drug therapy; Z88.8 Allergy status to other drugs, medicaments and biological substances; Z82.3 Family history of stroke